=== PATIENT | male | born 1955 | race Caucasian/White ===

== ENCOUNTER 2023-02-18 12:24 | Observation (INO) | payer OTHER ==
--- OUTSIDE RECORDS SUMMARY | 2023-02-18 12:31 | XMS REPORT | Continuity of Care Document ---
:1955 Author Organization [facility] t Address [address] [place] [address] Care Team Providers Name Role Phone Ally GAMA, Marylu Fox Primary Care Physician [phone] Nilo Yadav Attending Clinician Nilo Yadav Admitting Clinician Payers Payer Name Policy Type Policy Number Effective Date Expiration Date [facility] [employer] [id number] 2021 (MEDICARE 00:00:00 REPLACEMENT HMO) Problems Condition Condition Condition Status Onset Resolution Last Treating Co mments Source Name Details Category Date Date Treatment Clinician Date Syncope Syncope Disease Active Methodi 07-29 st 00:00: Hospita 00 l Right Right Disease Active Methodi inguinal inguinal 09-05 st hernia hernia 00:00: Hospita 00 l N20.0 N20.0 Diagnosis Active 2015-07-24 Mem oria Active 07-23 09:25:00 l 07/24/2015 00:00: [place] ADLER [place] UNK UNK Diagnosis Active 2015-07-18 Mem oria Active 07-09 10:01:00 l 07/10/2015 00:00: Leonard ADLER 00 [place] M25.511 - M25.511 - Diagnosis Active 2014-042015-03-03 Memoria PAIN IN PAIN IN 0- 16:11:00 l RIGHT RIGHT 00:01: [place] SHOULDER SHOULDER 00 Active 01/28/2015 [facility] Gastroesop Gastroeso Problem Active 2015-07-27 Memoria hageal phageal 02:57:48 l reflux reflux Preet disease disease (disorder) (disorder) Active Problem 07/27/2015 [facility] Asthma Asthma Problem Active 2015-07-27 Johnson laura (disorder) (disorder) 02:57:48 l Active Preet Problem 07/27/2015 [facility] Degenerati Degenerat Problem Active 2015-07-27 Memoria on of ion of 02:57:48 l interverte interverte He [facility] bral disc bral disc (disorder) (disorder) Active Problem 07/27/2015 [facility] Depressive Depressiv Problem Active 2015-07-27 Memoria disorder e disorder 02:57:48 l (disorder) (disorder) He rmann Active Problem 07/27/2015 [facility] Kidney Kidney Problem Active 2015-07-27 Johnson laura stone stone 02:57:48 l (disorder) (disorder) He rmann Active Problem 07/27/2015 [facility] Dyspnea Dyspnea Problem Active 2015-07-27 M emoria (finding) (finding) 02:57:48 l Active [place] Problem 07/27/2015 [facility] Shoulder Shoulder Problem Active 2015-07-27 Memoria pain pain 02:57:48 l (finding) (finding) Herm yunier Active Problem 07/27/2015 right [facility] XRAY XRAY Diagnosis Active 2013-11-22 Mem oria Active 08:50:00 l [facility] [place] 592.0 592.0 Diagnosis Active 2013-11-08 Mem oria Active 11:29:00 l [facility] [place] CALCULUS CALCULUS Diagnosis Active 2015-07-18 Memoria OF URETER OF URETER 10:01:00 l [facility] OTHER OTHER Diagnosis Active 2015-07-10 Mem oria MICROSCOPI MICROSCOPI 11:59:00 l C C [place] HEMATURIA HEMATURIA Active [facility] CALCULUS CALCULUS Diagnosis Active 2015-07-24 Memoria OF KIDNEY OF KIDNEY 09:25:00 l Active [facility] Disorder Disorder Problem Resolve 2015-07-27 Memoria of nervous of nervous d 02:57:48 l system due system due He [place] to [place] Nile virus Nile virus (disorder) (disorder) Resolved Problem 07/27/2015 [facility] Sleep Sleep Problem Resolve 2015-07-27 Johnson laura apnea apnea d 02:57:48 l (finding) (finding) Herm yunier Resolved Problem 07/27/2015 [facility] Allergies, Adverse Reactions, Alerts This patient has no known allergies or adverse reactions. Family History Family Member Diagnosis Comments Start Date Stop Date Source Natural mother Heart disease Methodi [facility] Natural mother Stroke [facility] Natural mother Dementia [facility] Natural mother Depression [facility] mother Diabetes [facility] Natural sister Depression [facility] Natural sister Hyperlipidemia Method t [facility] Natural brother Drug abuse [facility] Natural father Circulation Problems Confucianism with [facility] Natural father Diabetes [facility] Natural father Heart disease [facility] Natural father Stroke [facility] Social History Social Habit Start Date Stop Date Quantity Comments Source Sexual orientation Method [facility] Hospital History of tobacco Cigarette Smoker [facility] use Hospital History of Social 2018-11-22 2018-11-[address] function 00:00:00 00:00:00 Hospital Cigarettes smoked 2018-07-29 2018-07-[address] current (pack [facility] - Reported Cigarette 2018-07-29 2018-07-29 Confucianism pack-years 00:00:00 00:00:00 Hospital Alcohol intake 2018-07-29 2018-07-29 Current drinker Metho dist 00:00:00 00:00:00 of [facility] Hospital (finding) Tobacco use and 2018-07-29 2018-07-29 Smokeless tobacco Me thodist exposure 00:00:00 00:00:00 non-user Hospital Alcohol Comment 2017-09-14 2017-09-14 occasional Confucianism 00:00:00 00:00:00 drinker Hospital Tobacco Comment 2017-09-05 2017-09-05 doesnt know how Meth odist 00:00:00 00:00:00 long he Hospital smoked,but quit in his thirtys Social History 2015-07-15 2015-07-15 [facility] 21:10:34 21:10:34 Sex [birth year] Confucianism 00:00:00 00:00:00 Hospital Smoking Status Start Date Stop Date Source Ex-smoker 2018-07-29 00:00:00 2018-07-29 00:00:00 [facility] Medications Ordered Filled Start Stop Current Ordering Indication Dosage Frequency Signature Comments Components Source Medication Medication Date Date Medication? Clinician (SIG) Name Name topiramate Yes 100mg QD Take 100 Me thodi (TOPAMAX) 4-[address] 100 MG 13:22: mouth Hospita tablet 37 nightly. l albuterol 2019-0 Yes 2{puff} Q6H Inhale 2 M ethodi (PROAIR 4-[address] HFA,PROVENT 13:22: every 6 Hos eleuterio [place] 37 (six) l HFA,VENTOLI hours as N HFA) 90 needed for mcg/actuati wheezing. on inhaler ipratropium 2019-0 Yes 3mL Q.25D Take 3 mL Methodi -albuterol 4-[address] (DUO-NEB) 13:22: nebulizati Ho spita 0.5-2.5 37 on 4 l mg/mL (four) nebulizer times a day as needed. gluc 2019-0 Yes 1500mg Q.5D Take 1,500 Metho di huizar/chondro 4-[address] huizar A/vit 13:22: mouth 2 Hospit a C/Mn 37 (two) l (GLUCOSAMIN times a E 1500 day. COMPLEX ORAL) diazePAM 2019-0 Yes 2mg QD Take 2 mg Meth larissa (VALIUM) 2 4-[address] MG tablet 13:22: nightly as Ho spita 37 needed for l anxiety. rOPINIRole 2019-0 Yes 8mg QD Take 8 mg Me thodi (REQUIP) 4 4-[address] MG tablet 13:22: nightly. Hosp mihaela 37 l topiramate 2019-0 Yes 100mg QD Take 100 Me thodi (TOPAMAX) 4-[address] 100 MG 13:22: mouth Hospita tablet 37 nightly. l albuterol 2019-0 Yes 2{puff} Q6H Inhale 2 M ethodi (PROAIR 4-[address] HFA,PROVENT 13:22: every 6 Hos eleuterio [place] 37 (six) l HFA,VENTOLI hours as N HFA) 90 needed for mcg/actuati wheezing. on inhaler ipratropium 2019-0 Yes 3mL Q.25D Take 3 mL Methodi -albuterol 4-[address] (DUO-NEB) 13:22: nebulizati Ho spita 0.5-2.5 37 on 4 l mg/mL (four) nebulizer times a day as needed. gluc 2019-0 Yes 1500mg Q.5D Take 1,500 Metho di huizar/chondro 4-[address] huizar A/vit 13:22: mouth 2 Hospit a C/Mn 37 (two) l (GLUCOSAMIN times a E 1500 day. COMPLEX ORAL) diazePAM 2018- Yes 2mg QD Take 2 mg Meth larissa (VALIUM) 2 4-[address] MG tablet 13:22: nightly as Ho spita 37 needed for l anxiety. rOPINIRole Yes 8mg QD Take 8 mg Me thodi (REQUIP) 4 4-[address] MG tablet 13:22: nightly. Hosp mihaela 37 l topiramate Yes 100mg QD Take 100 Me thodi (TOPAMAX) 4-[address] 100 MG 13:22: mouth Hospita tablet 37 nightly. l albuterol Yes 2{puff} Q6H Inhale 2 M ethodi (PROAIR 4-[address] HFA,PROVENT 13:22: every 6 Hos eleuterio [place] 37 (six) l HFA,VENTOLI hours as N HFA) 90 needed for mcg/actuati wheezing. on inhaler ipratropium Yes 3mL Q.25D Take 3 mL Methodi -albuterol 4-[address] (DUO-NEB) 13:22: nebulizati Ho spita 0.5-2.5 37 on 4 l mg/mL (four) nebulizer times a day as needed. gluc 2018-0 Yes 1500mg Q.5D Take 1,500 Metho di huizar/chondro 4-[address] huizar A/vit 13:22: mouth 2 Hospit a C/Mn 37 (two) l (GLUCOSAMIN times a E 1500 day. COMPLEX ORAL) diazePAM 2018- Yes 2mg QD Take 2 mg Meth larissa (VALIUM) 2 4-[address] MG tablet 13:22: nightly as Ho spita 37 needed for l anxiety. rOPINIRole 20190 Yes 8mg QD Take 8 mg Me thodi (REQUIP) 4 4-[address] MG tablet 13:22: nightly. Hosp mihaela 37 l omeprazole 2017-0 Yes TK ONE C Met hodi (PriLOSEC) 5-[address] 20 MG 00:00: Hospita capsule 00 l omeprazole 2017-0 Yes TK ONE C Met hodi (PriLOSEC) 5-[address] 20 MG 00:00: Hospita capsule 00 l omeprazole 2017-0 Yes TK ONE C Met hodi (PriLOSEC) 5-[address] 20 MG 00:00: Hospita capsule 00 l DULoxetine Yes TK 1 C PO Me thodi (CYMBALTA) 4-[address] 60 MG 00:00: Hospita capsule 00 l fenofibrate 0 Yes TK 1 T PO M ethodi (LOFIBRA) 4-[address] 160 MG 00:00: Hospita tablet 00 l BREO 0 Yes INL 1 PUFF Methodi ELLIPTA 4-[address] 200-25 00:00: Hospita mcg/dose 00 l blister with device powder for inhalation levothyroxi Yes TK 1 T PO M ethodi ne 4-[address] (SYNTHROID, 00:00: MORNING Hos eleuterio LEVOXYL) 88 00 OES l mcg tablet DULoxetine Yes TK 1 C PO Me thodi (CYMBALTA) 4-[address] 60 MG 00:00: Hospita capsule 00 l fenofibrate 0 Yes TK 1 T PO M ethodi (LOFIBRA) 4-[address] 160 MG 00:00: Hospita tablet 00 l BREO 0 Yes INL 1 PUFF Methodi ELLIPTA 4-[address] 200-25 00:00: Hospita mcg/dose 00 l blister with device powder for inhalation levothyroxi Yes TK 1 T PO M ethodi ne 4-[address] (SYNTHROID, 00:00: MORNING Hos eleuterio LEVOXYL) 88 00 OES l mcg tablet DULoxetine Yes TK 1 C PO Me thodi (CYMBALTA) 4-[address] 60 MG 00:00: Hospita capsule 00 l fenofibrate 0 Yes TK 1 T PO M ethodi (LOFIBRA) 4-[address] 160 MG 00:00: Hospita tablet 00 l BREO 2017-0 Yes INL 1 PUFF Methodi ELLIPTA 4-[address] 200-25 00:00: Hospita mcg/dose 00 l blister with device powder for inhalation levothyroxi Yes TK 1 T PO M ethodi ne 4-[address] (SYNTHROID, 00:00: MORNING Hos eleuterio LEVOXYL) 88 00 OES l mcg tablet allopurinol 2018-0 Yes 100mg QD Take 100 M ethodi (ZYLOPRIM) 4-[address] 100 MG 00:00: mouth Hospita tablet 00 daily. l allopurinol 2018-0 Yes 100mg QD Take 100 M ethodi (ZYLOPRIM) 4-[address] 100 MG 00:00: mouth Hospita tablet 00 daily. l allopurinol 2018-0 Yes 100mg QD Take 100 M ethodi (ZYLOPRIM) 4-[address] 100 MG 00:00: mouth Hospita tablet 00 daily. l oxybutynin 2018-0 Yes 10mg QD Take 10 mg M ethodi XL 4-[address] (DITROPAN-X 00:00: daily. Hosp mihaela L) 10 MG 24 00 l hr tablet tamsulosin 2018-0 Yes .4mg QD 0.4 mg Metho di (FLOMAX) 4-[address] 0.4 mg 00:00: Hospita capsule,ext 00 l ended release 24hr oxybutynin 2018-0 Yes 10mg QD Take 10 mg M ethodi XL 4-[address] (DITROPAN-X 00:00: daily. Hosp mihaela L) 10 MG 24 00 l hr tablet tamsulosin 2018-0 Yes .4mg QD 0.4 mg Metho di (FLOMAX) 4-[address] 0.4 mg 00:00: Hospita capsule,ext 00 l ended release 24hr oxybutynin 2018-0 Yes 10mg QD Take 10 mg M ethodi XL 4-[address] (DITROPAN-X 00:00: daily. Hosp mihaela L) 10 MG 24 00 l hr tablet tamsulosin 2018-0 Yes .4mg QD 0.4 mg Metho di (FLOMAX) 4-[address] 0.4 mg 00:00: Hospita capsule,ext 00 l ended release 24hr atenolol 2018-0 Yes 25mg QD Take 25 mg Met hodi (TENORMIN) 3-[address] 25 MG 00:00: daily. Hospita tablet 00 l atenolol 2018-0 Yes 25mg QD Take 25 mg Met hodi (TENORMIN) 3-[address] 25 MG 00:00: daily. Hospita tablet 00 l atenolol Yes 25mg QD Take 25 mg Met hodi (TENORMIN) 3-[address] 25 MG 00:00: daily. Hospita tablet 00 l atorvastati Yes 40mg QD Take 40 mg Methodi n (LIPITOR) 3-[address] 40 MG 00:00: daily. Hospita tablet 00 l atorvastati Yes 40mg QD Take 40 mg Methodi n (LIPITOR) 3-[address] 40 MG 00:00: daily. Hospita tablet 00 l atorvastati Yes 40mg QD Take 40 mg Methodi n (LIPITOR) 3-[address] 40 MG 00:00: daily. Hospita tablet 00 l Ondansetron No Notes: Johnson laura 4-15 (Same as: l 17:34: Zofran) [place] 00 MEDICATION WASTE Product Size: 4 mg Product Wasted: ___ mg Ondansetron No Notes: Johnson laura 4-15 (Same as: l 17:34: Zofran) [place] 00 MEDICATION WASTE Product Size: 4 mg Product Wasted: ___ mg Oxycodone No Notes: Memori a Hydrochlori 4-15 (Same as: l de 1 MG/ML 17:34: Roxicodone H ermann Oral 00 ) Solution Oxycodone No Notes: Memori a Hydrochlori 4-15 (Same as: l de 1 MG/ML 17:34: Roxicodone H ermann Oral 00 ) Solution Oxycodone No Notes: Memori a 4-15 (Same as: l 17:34: Roxicodone Preet 00 ) Naloxone No Notes: Memoria 4-15 Same as l 17:34: Narcan [place] 00 Albuterol No Notes: SEE Me moria 0.83 MG/ML 4-15 RT l Inhalant 17:34: DOCUMENTAT Her gallegos Solution 00 ION (Same as: Proventil) Morphine No Notes: Memoria 4-15 (Same l 17:34: as:MORPhin Preet 00 e Sulfate) Hydromorpho No 0.5 mg, Mem oria ne 4-15 0.5 mL, l 17:34: Route: [place] 00 IVP, Drug form: INJ, Q5Min, Dosing Weight 107.301, kg, PRN Pain Score 7-10, Start date: 07/18/15 12:34:00 CDT, Duration: 4 doses or times, Stop date: Limited # of times Ketorolac No 30 mg, Memori a 4-15 Route: l 17:34: IVP, ONCE, Dosing Weight 107.301, kg, Start date: 07/18/15 12:34:00 CDT, Duration: 1 doses or times, Stop date: 07/18/15 12:34:00 CDT Fentanyl No Notes: Memoria 4-15 (Same as: l 17:34: Sublimaze) Preservati ve free. Meperidine No Notes: Memor ia 4-15 (Same As: l 17:34: Demerol) Flumazenil No Notes: Memor ia 4-15 (Same as: l 17:34: Romazicon) Oxycodone No Notes: Memori a 4-15 (Same as: l 17:34: Roxicodone ) Naloxone No Notes: Memoria 4-15 Same as l 17:34: Narcan Albuterol No Notes: SEE Me moria 0.83 MG/ML 4-15 RT l Inhalant 17:34: DOCUMENTAT Her gallegos Solution 00 ION (Same as: Proventil) Morphine No Notes: Memoria 4-15 (Same l 17:34: as:MORPhin e Sulfate) Hydromorpho No 0.5 mg, Mem oria ne 4-15 0.5 mL, l 17:34: Route: IVP, Drug form: INJ, Q5Min, Dosing Weight 107.301, kg, PRN Pain Score 7-10, Start date: 07/18/15 12:34:00 CDT, Duration: 4 doses or times, Stop date: Limited # of times Ketorolac No 30 mg, Memori a 4-15 Route: l 17:34: IVP, ONCE, Dosing Weight 107.301, kg, Start date: 07/18/15 12:34:00 CDT, Duration: 1 doses or times, Stop date: 07/18/15 12:34:00 CDT Fentanyl No Notes: Memoria 4-15 (Same as: l 17:34: Sublimaze) Preservati ve free. Meperidine No Notes: Memor ia 4-15 (Same As: l 17:34: Demerol) Flumazenil No Notes: Memor ia 4-15 (Same as: l 17:34: Romazicon) Ondansetron No Notes: Johnson laura 4-15 (Same as: l 17:34: Zofran) MEDICATION WASTE Product Size: 4 mg Product Wasted: ___ mg Oxycodone No Notes: Memori a Hydrochlori 4-15 (Same as: l de 1 MG/ML 17:34: Roxicodone H erm Oral ) Solution Oxycodone No Notes: Memori a 4-15 (Same as: l 17:34: Roxicodone [place] ) Naloxone No Notes: Memoria 4-15 Same as l 17:34: Narcan Albuterol No Notes: SEE Me moria 0.83 MG/ML 4-15 RT l Inhalant 17:34: DOCUMENTAT Her gallegos Solution 00 ION (Same as: Proventil) Morphine No Notes: Memoria 4-15 (Same l 17:34: as:MORPhin e Sulfate) Hydromorpho No 0.5 mg, Mem oria ne 4-15 0.5 mL, l 17:34: Route: IVP, Drug form: INJ, Q5Min, Dosing Weight 107.301, kg, PRN Pain Score 7-10, Start date: 07/18/15 12:34:00 CDT, Duration: 4 doses or times, Stop date: Limited # of times Ketorolac No 30 mg, Memori a 4-15 Route: l 17:34: IVP, ONCE, Dosing Weight 107.301, kg, Start date: 07/18/15 12:34:00 CDT, Duration: 1 doses or times, Stop date: 07/18/15 12:34:00 CDT Fentanyl No Notes: Memoria 4-15 (Same as: l 17:34: Sublimaze) Preservati ve free. Meperidine No Notes: Memor ia 4-15 (Same As: l 17:34: Demerol) Flumazenil No Notes: Memor ia 4-15 (Same as: l 17:34: Romazicon) acetaminoph No Route: IV, Memoria en (ANES) 4-15 Drug form: l 17:00: INJ, ONCE, Stop date: 07/18/15 12:00:00 CDT ePHEDrine No Route: IV, Me moria (ANES) 4-15 Drug form: l 17:00: INJ, ONCE, Stop date: 07/18/15 12:00:00 CDT furosemide No Route: IV, M emoria (ANES) 4-15 Drug form: l 17:00: INJ, ONCE, Stop date: 07/18/15 12:00:00 CDT acetaminoph No Route: IV, Memoria en (ANES) 4-15 Drug form: l 17:00: INJ, ONCE, Stop date: 07/18/15 12:00:00 CDT ePHEDrine No Route: IV, Me moria (ANES) 4-15 Drug form: l 17:00: INJ, ONCE, Stop date: 07/18/15 12:00:00 CDT furosemide No Route: IV, M emoria (ANES) 4-15 Drug form: l 17:00: INJ, ONCE, Stop date: 07/18/15 12:00:00 CDT acetaminoph No Route: IV, Memoria en (ANES) 4-15 Drug form: l 17:00: INJ, ONCE, Stop date: 07/18/15 12:00:00 CDT ePHEDrine 2015-0 No Route: IV, Me aldanaa (ANES) 15 Drug form: l 17:00: INJ, ONCE, Stop date: 07/18/15 12:00:00 CDT furosemide 2016-0 No Route: IV, Leroy simona (ANES) 4-15 Drug form: l 17:00: INJ, ONCE, Stop date: 07/18/15 12:00:00 CDT Sodium 2016-0 No 1,000 mL, Memori a Chloride -15 Rate: 25 l 0.154 16:59: ml/hr, Preet MEQ/ML 00 Infuse Injectable over: 40 Solution hr, Route: IV, Dosing Weight 107.301 kg, Total Volume: 1,000, Start date: 07/18/15 11:59:00 CDT, Duration: 30 day, Stop date: 08/17/15 11:58:00 CDT Calcium 2016-0 No 1,000 mL, Memor ia Chloride -15 Rate: 25 l 0.0014 16:59: ml/hr, Preet MEQ/ML / 00 Infuse Potassium over: 40 Chloride hr, Route: 0.004 IV, Dosing MEQ/ML / Weight Sodium 107.301 Chloride kg, Total 0.103 Volume: MEQ/ML / 1,000, Sodium Start Lactate date: 0.028 07/18/15 MEQ/ML 11:59:00 Injectable CDT, Solution Duration: 30 day, Stop date: 08/17/15 11:58:00 CDT Sodium 2016-0 No 1,000 mL, Memori a Chloride -15 Rate: 25 l 0.154 16:59: ml/hr, [place] MEQ/ML 00 Infuse Injectable over: 40 Solution hr, Route: IV, Dosing Weight 107.301 kg, Total Volume: 1,000, Start date: 07/18/15 11:59:00 CDT, Duration: 30 day, Stop date: 08/17/15 11:58:00 CDT Calcium 2016-0 No 1,000 mL, Memor ia Chloride 4-15 Rate: 25 l 0.0014 16:59: ml/hr, Preet MEQ/ML / 00 Infuse Potassium over: 40 Chloride hr, Route: 0.004 IV, Dosing MEQ/ML / Weight Sodium 107.301 Chloride kg, Total 0.103 Volume: MEQ/ML / 1,000, Sodium Start Lactate date: 0.028 07/18/15 MEQ/ML 11:59:00 Injectable CDT, Solution Duration: 30 day, Stop date: 08/17/15 11:58:00 CDT Sodium 2015-0 No 1,000 mL, Memori a Chloride 07-17 Rate: 25 l 0.154 16:59: ml/hr, Preet MEQ/ML 00 Infuse Injectable over: 40 Solution hr, Route: IV, Dosing Weight 107.301 kg, Total Volume: 1,000, Start date: 07/18/15 11:59:00 CDT, Duration: 30 day, Stop date: 08/17/15 11:58:00 CDT Calcium 2015-0 No 1,000 mL, Memor ia Chloride 07-17 Rate: 25 l 0.0014 16:59: ml/hr, Preet MEQ/ML / 00 Infuse Potassium over: 40 Chloride hr, Route: 0.004 IV, Dosing MEQ/ML / Weight Sodium 107.301 Chloride kg, Total 0.103 Volume: MEQ/ML / 1,000, Sodium Start Lactate date: 0.028 07/18/15 MEQ/ML 11:59:00 Injectable CDT, Solution Duration: 30 day, Stop date: 08/17/15 11:58:00 CDT ondansetron No Route: IV, Memoria (ANES) 07-17 Drug form: l 16:55: INJ, ONCE, Stop date: 07/18/15 11:55:00 CDT ondansetron No Route: IV, Memoria (ANES) 07-17 Drug form: l 16:55: INJ, ONCE, Stop date: 07/18/15 11:55:00 CDT ondansetron No Route: IV, Memoria (ANES) 4-15 Drug form: l 16:55: INJ, ONCE, Stop date: 07/18/15 11:55:00 CDT midazolam No Route: IV, Me moria (ANES) 15 Drug form: l 16:50: SOLN, 00 ONCE, Stop date: 07/18/15 11:50:00 CDT phenylephri No Route: IV, Memoria ne (ANES) 4-15 Drug form: l 16:50: INJ, ONCE, [place] 00 Stop date: 07/18/15 11:50:00 CDT lidocaine 2016-0 No Route: IV, Me moria (ANES) 4-15 Drug form: l 16:50: INJ, ONCE, Preet 00 Stop date: 07/18/15 11:50:00 CDT propofol 2016-0 No Route: IV, Mem oria (ANES) 4-15 Drug form: l 16:50: INJ, ONCE, [place] 00 Stop date: 07/18/15 11:50:00 CDT fentaNYL 2016-0 No Route: IV, Mem oria (ANES) 4-15 Drug form: l 16:50: INJ, ONCE, Stop date: 07/18/15 11:50:00 CDT midazolam No Route: IV, Me moria (ANES) 4-15 Drug form: l 16:50: SOLN, Preet ONCE, Stop date: 07/18/15 11:50:00 CDT phenylephri No Route: IV, Memoria ne (ANES) 4-15 Drug form: l 16:50: INJ, ONCE, Stop date: 07/18/15 11:50:00 CDT lidocaine 0 No Route: IV, Me moria (ANES) 4-15 Drug form: l 16:50: INJ, ONCE, Stop date: 07/18/15 11:50:00 CDT propofol 2016-0 No Route: IV, Mem oria (ANES) 4-15 Drug form: l 16:50: INJ, ONCE, Preet 00 Stop date: 07/18/15 11:50:00 CDT fentaNYL 2016-0 No Route: IV, Mem oria (ANES) 4-15 Drug form: l 16:50: INJ, ONCE, Preet 00 Stop date: 07/18/15 11:50:00 CDT midazolam 0 No Route: IV, Me moria (ANES) 4-15 Drug form: l 16:50: SOLN, Preet ONCE, Stop date: 07/18/15 11:50:00 CDT phenylephri 2015-0 No Route: IV, Memoria ne (ANES) 4-15 Drug form: l 16:50: INJ, ONCE, Stop date: 07/18/15 11:50:00 CDT lidocaine 2015-0 No Route: IV, Me moria (ANES) 4-15 Drug form: l 16:50: INJ, ONCE, Stop date: 07/18/15 11:50:00 CDT propofol 2016-0 No Route: IV, Mem oria (ANES) 4-15 Drug form: l 16:50: INJ, ONCE, Stop date: 07/18/15 11:50:00 CDT fentaNYL 2015-0 No Route: IV, Mem oria (ANES) 4-15 Drug form: l 16:50: INJ, ONCE, Stop date: 07/18/15 11:50:00 CDT Hydromorpho 2015- No 0.3 mg, Mem oria ne 4-15 0.3 mL, l 16:20: Route: IVP, Drug form: INJ, Q3H, Dosing Weight 107.301, kg, PRN Pain Score 4-6, Start date: 07/18/15 11:20:00 CDT, Duration: 30 day, Stop date: 08/17/15 11:19:00 CDT Morphine 2015-0 No Notes: Memoria 4-15 (Same l 16:20: as:MORPhin Preet 00 e Sulfate) Hydromorpho 2015-0 No 0.3 mg, Mem oria ne 4-15 0.3 mL, l 16:20: Route: IVP, Drug form: INJ, Q3H, Dosing Weight 107.301, kg, PRN Pain Score 4-6, Start date: 07/18/15 11:20:00 CDT, Duration: 30 day, Stop date: 08/17/15 11:19:00 CDT Morphine 2015-0 No Notes: Memoria 4-15 (Same l 16:20: as:MORPhin [place] 00 e Sulfate) Hydromorpho 2015-0 No 0.3 mg, Mem oria ne 4-15 0.3 mL, l 16:20: Route: [place] 00 IVP, Drug form: INJ, Q3H, Dosing Weight 107.301, kg, PRN Pain Score 4-6, Start date: 07/18/15 11:20:00 CDT, Duration: 30 day, Stop date: 08/17/15 11:19:00 CDT Morphine No Notes: Memoria 4-15 (Same l 16:20: as:MORPhin Preet 00 e Sulfate) Lactated No Route: IV, Mem oria Ringers 4-15 Total l Injection 16:04: Volume: Geetha nn IV (ANES) 00 1,000, (ANES) Start date: 07/18/15 11:04:00 CDT, Stop date: 07/18/15 12:04:00 CDT Lactated No Route: IV, Mem oria Ringers 4-15 Total l Injection 16:04: Volume: Geetha nn IV (ANES) 00 1,000, (ANES) Start date: 07/18/15 11:04:00 CDT, Stop date: 07/18/15 12:04:00 CDT Lactated No Route: IV, Mem oria Ringers 4-15 Total l Injection 16:04: Volume: Geetha nn IV (ANES) 00 1,000, (ANES) Start date: 07/18/15 11:04:00 CDT, Stop date: 07/18/15 12:04:00 CDT Symbicort 2016-0 Yes 2 puff, Memor ia 160/4.5 4-12 INHALER, l inhalation 21:22: BID, # 1 Her gallegos aerosol 00 ea, 3 with Refill(s) adapter Symbicort 2016-0 Yes 2 puff, Memor ia 160/4.5 4-12 INHALER, l inhalation 21:22: BID, # 1 Her gallegos aerosol 00 ea, 3 with Refill(s) adapter Symbicort 2016-0 Yes 2 puff, Memor ia 160/4.5 4-12 INHALER, l inhalation 21:22: BID, # 1 Her gallegos aerosol 00 ea, 3 with Refill(s) adapter acetaminoph 2015-0 No Route: IV, Memoria en (ANES) 407 Drug form: l (ANES) 20:32: INJ, Start Geetha nn 00 date: 07/10/15 15:32:00, Stop date: 07/10/15 16:32:00 Oxycodone 2015-0 No 10 mg, Memori a 07-09 Route: PO, l 20:32: Drug form: [place] 00 TAB, Q4H, Dosing Weight 106.818, kg, PRN Pain Score 7-10, Start date: 07/10/15 15:32:00, Duration: 30 day, Stop date: 08/09/15 15:31:00 Fentanyl 2015-0 No 25 Memoria 4- microgram, l 20:32: Route: Preet 00 IVP, Q5Min, Dosing Weight 106.818, kg, PRN Pain Score 4-6, Start date: 07/10/15 15:32:00, Duration: 4 doses or times, Stop date: Limited # of times Sodium 2015-0 No 1,000 mL, Memori a Chloride 07-09 Rate: 125 l 0.154 20:32: ml/hr, Preet MEQ/ML 00 Infuse Injectable over: 8 Solution hr, Route: IV, Dosing Weight 106.818 kg, Total Volume: 1,000, Start date: 07/10/15 15:32:00, Duration: 30 day, Stop date: 08/09/15 15:31:00 Naloxone 2015-0 No 0.04 mg, Memor ia 07-09 Route: l 20:32: IVP, [place] 00 Q2MIN, Dosing Weight 106.818, kg, PRN Narcotic Reversal, Start date: 07/10/15 15:32:00, Duration: 8 doses or times, Stop date: Limited # of times Flumazenil 2015-0 No 0.2 mg, Johnson laura 07-09 Route: l 20:32: IVP, PRN, [place] 00 Dosing Weight 106.818, kg, PRN Benzodiaze pine Reversal, Initial dose, Start date: 07/10/15 15:32:00, Duration: 30 day, Stop date: 08/09/15 15:31:00 Diphenhydra 2015-0 No 12.5 mg, Me moria mine 07-09 Route: l 20:32: IVP, Drug Preet 00 form: INJ, Q6H, Dosing Weight 106.818, kg, PRN Itching, Start date: 07/10/15 15:32:00, Duration: 30 day, Stop date: 08/09/15 15:31:00 Ondansetron 2016-0 No 4 mg, Memor ia 07-09 Route: l 20:32: IVP, ONCE, [place] 00 Dosing Weight 106.818, kg, PRN Nausea & Vomiting, Start date: 07/10/15 15:32:00 Albuterol 2016-0 No 2.49 mg, Johnson laura 0.83 MG/ML 07-09 Route: l Inhalant 20:32: NEB, [place] Solution 00 Q20Min, Dosing Weight 106.818, kg, PRN Wheezing, Priority: STAT, Start date: 07/10/15 15:32:00, Duration: 30 day, Stop date: 08/09/15 15:31:00 Promethazin 2016-0 No 6.25 mg, Me moria e 07-09 Route: l 20:32: IVPB, Preet 00 ONCE, Dosing Weight 106.818, kg, PRN Nausea & Vomiting, Start date: 07/10/15 15:32:00 Hydromorpho 2016-0 No 0.5 mg, Mem oria ne 07-09 Route: l 20:32: IVP, [place] 00 Q5Min, Dosing Weight 106.818, kg, PRN Pain Score 7-10, Start date: 07/10/15 15:32:00, Duration: 4 doses or times, Stop date: Limited # of times Meperidine 2016-0 No 12.5 mg, Mem oria 07-09 Route: l 20:32: IVP, Preet 00 Q30Min, Dosing Weight 106.818, kg, PRN Other -See Comment, For shivering, Start date: 07/10/15 15:32:00, Duration: 2 doses or times, Stop date: Limited # of times Calcium 2016-0 No 1,000 mL, Memor ia Chloride 07-09 Rate: 125 l 0.0014 20:32: ml/hr, Preet MEQ/ML / 00 Infuse Potassium over: 8 Chloride hr, Route: 0.004 IV, Dosing MEQ/ML / Weight Sodium 106.818 Chloride kg, Total 0.103 Volume: MEQ/ML / 1,000, Sodium Start Lactate date: 0.028 07/10/15 MEQ/ML 15:32:00, Injectable Duration: Solution 30 day, Stop date: 08/09/15 15:31:00 acetaminoph 2015- No Route: IV, Memoria en (ANES) 07-09 Drug form: l (ANES) 20:32: INJ, Start Geetha nn 00 date: 07/10/15 15:32:00, Stop date: 07/10/15 16:32:00 Oxycodone No 10 mg, Memori a 07-09 Route: PO, l 20:32: Drug form: Preet 00 TAB, Q4H, Dosing Weight 106.818, kg, PRN Pain Score 7-10, Start date: 07/10/15 15:32:00, Duration: 30 day, Stop date: 08/09/15 15:31:00 Fentanyl 2015- No 25 Memoria - microgram, l 20:32: Route: [place] 00 IVP, Q5Min, Dosing Weight 106.818, kg, PRN Pain Score 4-6, Start date: 07/10/15 15:32:00, Duration: 4 doses or times, Stop date: Limited # of times Sodium No 1,000 mL, Memori a Chloride 07-09 Rate: 125 l 0.154 20:32: ml/hr, Preet MEQ/ML 00 Infuse Injectable over: 8 Solution hr, Route: IV, Dosing Weight 106.818 kg, Total Volume: 1,000, Start date: 07/10/15 15:32:00, Duration: 30 day, Stop date: 08/09/15 15:31:00 Naloxone No 0.04 mg, Memor ia 07-09 Route: l 20:32: IVP, [place] 00 Q2MIN, Dosing Weight 106.818, kg, PRN Narcotic Reversal, Start date: 07/10/15 15:32:00, Duration: 8 doses or times, Stop date: Limited # of times Flumazenil No 0.2 mg, Johnson laura 07-09 Route: l 20:32: IVP, PRN, [place] 00 Dosing Weight 106.818, kg, PRN Benzodiaze pine Reversal, Initial dose, Start date: 07/10/15 15:32:00, Duration: 30 day, Stop date: 08/09/15 15:31:00 Diphenhydra 2016-0 No 12.5 mg, Me moria mine 07-09 Route: l 20:32: IVP, Drug [place] 00 form: INJ, Q6H, Dosing Weight 106.818, kg, PRN Itching, Start date: 07/10/15 15:32:00, Duration: 30 day, Stop date: 08/09/15 15:31:00 Ondansetron 2016-0 No 4 mg, Memor ia 07-09 Route: l 20:32: IVP, ONCE, [place] 00 Dosing Weight 106.818, kg, PRN Nausea & Vomiting, Start date: 07/10/15 15:32:00 Albuterol 2016-0 No 2.49 mg, Johnson laura 0.83 MG/ML 07-09 Route: l Inhalant 20:32: NEB, [place] Solution 00 Q20Min, Dosing Weight 106.818, kg, PRN Wheezing, Priority: STAT, Start date: 07/10/15 15:32:00, Duration: 30 day, Stop date: 08/09/15 15:31:00 Promethazin 2016-0 No 6.25 mg, Me moria e 07-09 Route: l 20:32: IVPB, Preet 00 ONCE, Dosing Weight 106.818, kg, PRN Nausea & Vomiting, Start date: 07/10/15 15:32:00 Hydromorpho 2016-0 No 0.5 mg, Mem oria ne 07-09 Route: l 20:32: IVP, [place] 00 Q5Min, Dosing Weight 106.818, kg, PRN Pain Score 7-10, Start date: 07/10/15 15:32:00, Duration: 4 doses or times, Stop date: Limited # of times Meperidine 2016-0 No 12.5 mg, Mem oria 07-09 Route: l 20:32: IVP, [place] 00 Q30Min, Dosing Weight 106.818, kg, PRN Other -See Comment, For shivering, Start date: 07/10/15 15:32:00, Duration: 2 doses or times, Stop date: Limited # of times Calcium 2016-0 No 1,000 mL, Memor ia Chloride -07 Rate: 125 l 0.0014 20:32: ml/hr, [place] MEQ/ML / 00 Infuse Potassium over: 8 Chloride hr, Route: 0.004 IV, Dosing MEQ/ML / Weight Sodium 106.818 Chloride kg, Total 0.103 Volume: MEQ/ML / 1,000, Sodium Start Lactate date: 0.028 07/10/15 MEQ/ML 15:32:00, Injectable Duration: Solution 30 day, Stop date: 08/09/15 15:31:00 acetaminoph 2015-0 No Route: IV, Memoria en (ANES) 07-09 Drug form: l (ANES) 20:32: INJ, Start Geetha nn 00 date: 07/10/15 15:32:00, Stop date: 07/10/15 16:32:00 Oxycodone 2015-0 No 10 mg, Memori a - Route: PO, l 20:32: Drug form: [place] 00 TAB, Q4H, Dosing Weight 106.818, kg, PRN Pain Score 7-10, Start date: 07/10/15 15:32:00, Duration: 30 day, Stop date: 08/09/15 15:31:00 Fentanyl 2015-0 No 25 Memoria -07 microgram, l 20:32: Route: [place] 00 IVP, Q5Min, Dosing Weight 106.818, kg, PRN Pain Score 4-6, Start date: 07/10/15 15:32:00, Duration: 4 doses or times, Stop date: Limited # of times Sodium 2016-0 No 1,000 mL, Memori a Chloride - Rate: 125 l 0.154 20:32: ml/hr, [place] MEQ/ML 00 Infuse Injectable over: 8 Solution hr, Route: IV, Dosing Weight 106.818 kg, Total Volume: 1,000, Start date: 07/10/15 15:32:00, Duration: 30 day, Stop date: 08/09/15 15:31:00 Naloxone 2016-0 No 0.04 mg, Memor ia - Route: l 20:32: IVP, [place] 00 Q2MIN, Dosing Weight 106.818, kg, PRN Narcotic Reversal, Start date: 07/10/15 15:32:00, Duration: 8 doses or times, Stop date: Limited # of times Flumazenil 2016-0 No 0.2 mg, Johnson laura 07-09 Route: l 20:32: IVP, PRN, [place] 00 Dosing Weight 106.818, kg, PRN Benzodiaze pine Reversal, Initial dose, Start date: 07/10/15 15:32:00, Duration: 30 day, Stop date: 08/09/15 15:31:00 Diphenhydra 2016-0 No 12.5 mg, Me moria mine 07-09 Route: l 20:32: IVP, Drug [place] 00 form: INJ, Q6H, Dosing Weight 106.818, kg, PRN Itching, Start date: 07/10/15 15:32:00, Duration: 30 day, Stop date: 08/09/15 15:31:00 Ondansetron 2016-0 No 4 mg, Memor ia 07-09 Route: l 20:32: IVP, ONCE, [place] 00 Dosing Weight 106.818, kg, PRN Nausea & Vomiting, Start date: 07/10/15 15:32:00 Albuterol 2016-0 No 2.49 mg, Johnson laura 0.83 MG/ML 07-09 Route: l Inhalant 20:32: NEB, Preet Solution 00 Q20Min, Dosing Weight 106.818, kg, PRN Wheezing, Priority: STAT, Start date: 07/10/15 15:32:00, Duration: 30 day, Stop date: 08/09/15 15:31:00 Promethazin 2016-0 No 6.25 mg, Me moria e 07-09 Route: l 20:32: IVPB, [place] 00 ONCE, Dosing Weight 106.818, kg, PRN Nausea & Vomiting, Start date: 07/10/15 15:32:00 Hydromorpho 2016-0 No 0.5 mg, Mem oria ne 07-09 Route: l 20:32: IVP, [place] 00 Q5Min, Dosing Weight 106.818, kg, PRN Pain Score 7-10, Start date: 07/10/15 15:32:00, Duration: 4 doses or times, Stop date: Limited # of times Meperidine 2016-0 No 12.5 mg, Mem oria 07-09 Route: l 20:32: IVP, [place]reet 00 Q30Min, Dosing Weight 106.818, kg, PRN Other -See Comment, For shivering, Start date: 07/10/15 15:32:00, Duration: 2 doses or times, Stop date: Limited # of times Calcium 2015-0 No 1,000 mL, Memor ia Chloride 07-09 Rate: 125 l 0.0014 20:32: ml/hr, [place] MEQ/ML / 00 Infuse Potassium over: 8 Chloride hr, Route: 0.004 IV, Dosing MEQ/ML / Weight Sodium 106.818 Chloride kg, Total 0.103 Volume: MEQ/ML / 1,000, Sodium Start Lactate date: 0.028 07/10/15 MEQ/ML 15:32:00, Injectable Duration: Solution 30 day, Stop date: 08/09/15 15:31:00 ePHEDrine 2015-0 No Route: IV, Me moria (ANES) 07-09 Drug form: l 20:28: INJ, ONCE, Preet 00 Stop date: 07/10/15 15:28:00 ondansetron 2015-0 No Route: IV, Memoria (ANES) 07-09 Drug form: l 20:28: INJ, ONCE, Preet 00 Stop date: 07/10/15 15:28:00 ePHEDrine 2015-0 No Route: IV, Me moria (ANES) 07-09 Drug form: l 20:28: INJ, ONCE, [place] 00 Stop date: 07/10/15 15:28:00 ondansetron 2015-0 No Route: IV, Memoria (ANES) 07-09 Drug form: l 20:28: INJ, ONCE, Preet Stop date: 07/10/15 15:28:00 ePHEDrine 2015-0 No Route: IV, Me moria (ANES) 4- Drug form: l 20:28: INJ, ONCE, [place] 00 Stop date: 07/10/15 15:28:00 ondansetron 2016-0 No Route: IV, Memoria (ANES) 07-09 Drug form: l 20:28: INJ, ONCE, Preet Stop date: 07/10/15 15:28:00 midazolam 2016-0 No Route: IV, Me moria (ANES) 4-07 Drug form: l 20:27: SOLN, [place] 00 ONCE, Stop date: 07/10/15 15:27:00 propofol 2016-0 No Route: IV, Mem oria (ANES) 4-07 Drug form: l 20:27: INJ, ONCE, Preet 00 Stop date: 07/10/15 15:27:00 lidocaine 2016-0 No Route: IV, Me moria (ANES) 4- Drug form: l 20:27: INJ, ONCE, [place] 00 Stop date: 07/10/15 15:27:00 fentaNYL 2016-0 No Route: IV, Mem oria (ANES) 4-07 Drug form: l 20:27: INJ, ONCE, Preet 00 Stop date: 07/10/15 15:27:00 midazolam 2016-0 No Route: IV, Me moria (ANES) 4-07 Drug form: l 20:27: SOLN, Preet 00 ONCE, Stop date: 07/10/15 15:27:00 propofol 2016-0 No Route: IV, Mem oria (ANES) 4-07 Drug form: l 20:27: INJ, ONCE, Preet 00 Stop date: 07/10/15 15:27:00 lidocaine 2016-0 No Route: IV, Me moria (ANES) 4-07 Drug form: l 20:27: INJ, ONCE, Preet 00 Stop date: 07/10/15 15:27:00 fentaNYL 2016-0 No Route: IV, Mem oria (ANES) 4-07 Drug form: l 20:27: INJ, ONCE, Preet 00 Stop date: 07/10/15 15:27:00 midazolam 2016-0 No Route: IV, Me moria (ANES) 4-07 Drug form: l 20:27: SOLN, [place] 00 ONCE, Stop date: 07/10/15 15:27:00 propofol 2016-0 No Route: IV, Mem oria (ANES) 4-07 Drug form: l 20:27: INJ, ONCE, [place] 00 Stop date: 07/10/15 15:27:00 lidocaine 2016-0 No Route: IV, Me moria (ANES) 4-07 Drug form: l 20:27: INJ, ONCE, [place] 00 Stop date: 07/10/15 15:27:00 fentaNYL 2016-0 No Route: IV, Mem oria (ANES) 07-09 Drug form: l 20:27: INJ, ONCE, Stop date: 07/10/15 15:27:00 famotidine 2015-0 No Route: IV, M emoria (ANES) 07-09 Drug form: l 20:22: INJ, ONCE, Stop date: 07/10/15 15:22:00 metoclopram 2016-0 No Route: IV, Memoria natalie (ANES) 07-09 Drug form: l 20:22: INJ, ONCE, Stop date: 07/10/15 15:22:00 famotidine 2015-0 No Route: IV, M emoria (ANES) 07-09 Drug form: l 20:22: INJ, ONCE, Stop date: 07/10/15 15:22:00 metoclopram 2016-0 No Route: IV, Memoria natalie (ANES) 07-09 Drug form: l 20:22: INJ, ONCE, Stop date: 07/10/15 15:22:00 famotidine 2015-0 No Route: IV, M emoria (ANES) 07-09 Drug form: l 20:22: INJ, ONCE, Stop date: 07/10/15 15:22:00 metoclopram 2016-0 No Route: IV, Memoria natalie (ANES) 07-09 Drug form: l 20:22: INJ, ONCE, Stop date: 07/10/15 15:22:00 Ciprofloxac Yes 500 mg = 1 Memoria in 500 MG 07-09 tab, PO, l Oral Tablet 20:19: Q12H, X 21 [place] [Cipro] 00 day, # 42 tab, 1 Refill(s) Phenazopyri 2015-0 Yes 100 mg = 1 Memoria dine -07 tab, PO, l hydrochlori 20:19: TID, PRN He rmann de 100 MG 00 Dysuria, X Oral Tablet 2 week, # [Pyridium] 42 tab, 1 Refill(s) Ciprofloxac Yes 500 mg = 1 Memoria in 500 MG 4-07 tab, PO, l Oral Tablet 20:19: Q12H, X 21 P[place] [Cipro] 00 day, # 42 tab, 1 Refill(s) Phenazopyri 2015- Yes 100 mg = 1 Memoria dine 4-07 tab, PO, l hydrochlori 20:19: TID, PRN He rmann de 100 MG 00 Dysuria, X Oral Tablet 2 week, # [Pyridium] 42 tab, 1 Refill(s) Ciprofloxac Yes 500 mg = 1 Memoria in 500 MG 4-07 tab, PO, l Oral Tablet 20:19: Q12H, X 21 Preet [Cipro] 00 day, # 42 tab, 1 Refill(s) Phenazopyri Yes 100 mg = 1 Memoria dine 4-07 tab, PO, l hydrochlori 20:19: TID, PRN He rmann de 100 MG 00 Dysuria, X Oral Tablet 2 week, # [Pyridium] 42 tab, 1 Refill(s) Belladonna No Notes: Memor ia Alkaloids - (Same As:B l 16.2 MG / 20:16: & O Supp Herm yunier Opium 30 MG 00 16A) Rectal Suppository Hydromorpho No 0.3 mg, Mem oria ne -07 0.3 mL, l 20:16: Route: Preet 00 IVP, Drug form: INJ, Q3H, Dosing Weight 106.818, kg, PRN Pain Score 4-6, Start date: 07/10/15 15:16:00, Duration: 30 day, Stop date: 08/09/15 15:15:00 Belladonna 2015-0 No Notes: Memor ia Alkaloids 07-09 (Same As:B l 16.2 MG / 20:16: & O Supp Herm yunier Opium 30 MG 16A) Rectal Suppository Hydromorpho No 0.3 mg, Mem oria ne -07 0.3 mL, l 20:16: Route: Preet 00 IVP, Drug form: INJ, Q3H, Dosing Weight 106.818, kg, PRN Pain Score 4-6, Start date: 07/10/15 15:16:00, Duration: 30 day, Stop date: 08/09/15 15:15:00 [place] No Notes: Memor ia Alkaloids - (Same As:B l 16.2 MG / 20:16: & O Supp Herm yunier Opium 30 MG 00 16A) Rectal Suppository Hydromorpho No 0.3 mg, Mem oria ne 07-09 0.3 mL, l 20:16: Route: Preet 00 IVP, Drug form: INJ, Q3H, Dosing Weight 106.818, kg, PRN Pain Score 4-6, Start date: 07/10/15 15:16:00, Duration: 30 day, Stop date: 08/09/15 15:15:00 Sodium No Route: IV, Memor ia Chloride - Drug form: l 0.9% IV 20:05: INJ, Start Herm yunier (ANES) 00 date: (ANES) + 07/10/15 cefTRIAXone 15:05:00, (ANES) Stop date: (ANES) 07/10/15 16:05:00 Sodium No Route: IV, Memor ia Chloride 07-09 Drug form: l 0.9% IV 20:05: INJ, Start Herm yunier (ANES) 00 date: (ANES) + 07/10/15 cefTRIAXone 15:05:00, (ANES) Stop date: (ANES) 07/10/15 16:05:00 Sodium No Route: IV, Memor ia Chloride -07 Drug form: l 0.9% IV 20:05: INJ, Start Herm yunier (ANES) 00 date: (ANES) + 07/10/15 cefTRIAXone 15:05:00, (ANES) Stop date: (ANES) 07/10/15 16:05:00 ciprofloxac No Route: IV, Memoria in (ANES) 4-07 Drug form: l (ANES) 19:35: INJ, Start Geetha nn date: 07/10/15 14:35:00, Stop date: 07/10/15 15:35:00 ciprofloxac No Route: IV, Memoria in (ANES) 407 Drug form: l (ANES) 19:35: INJ, Start Geetha nn date: 07/10/15 14:35:00, Stop date: 07/10/15 15:35:00 ciprofloxac No Route: IV, Memoria in (ANES) 07-09 Drug form: l (ANES) 19:35: INJ, Start Geetha nn 00 date: 07/10/15 14:35:00, Stop date: 07/10/15 15:35:00 Lactated No Route: IV, Mem oria Ringers 4-07 Total l Injection 19:20: Volume: Geetha nn IV (ANES) 00 1,000, (ANES) Start date: 07/10/15 14:20:00, Stop date: 07/10/15 15:20:00 Lactated No Route: IV, Mem oria Ringers 4-07 Total l Injection 19:20: Volume: Geetha nn IV (ANES) 00 1,000, (ANES) Start date: 07/10/15 14:20:00, Stop date: 07/10/15 15:20:00 Lactated No Route: IV, Mem oria Ringers 4-07 Total l Injection 19:20: Volume: Geetha nn IV (ANES) 00 1,000, (ANES) Start date: 07/10/15 14:20:00, Stop date: 07/10/15 15:20:00 Calcium 2015-0 No 1,000 mL, Memor ia Chloride 07-09 Rate: 25 l 0.0014 18:41: ml/hr, Preet MEQ/ML / 00 Infuse Potassium over: 40 Chloride hr, Route: 0.004 IV, Dosing MEQ/ML / Weight Sodium 106.818 Chloride kg, Total 0.103 Volume: MEQ/ML / 1,000, Sodium Start Lactate date: 0.028 07/10/15 MEQ/ML 13:41:00, Injectable Duration: Solution 30 day, Stop date: 08/09/15 13:40:00 Sodium 0 No 1,000 mL, Memori a Chloride 07-09 Rate: 25 l 0.154 18:41: ml/hr, Preet MEQ/ML 00 Infuse Injectable over: 40 Solution hr, Route: IV, Dosing Weight 106.818 kg, Total Volume: 1,000, Start date: 07/10/15 13:41:00, Duration: 30 day, Stop date: 08/09/15 13:40:00 Calcium 2016-0 No 1,000 mL, Memor ia Chloride 4-07 Rate: 25 l 0.0014 18:41: ml/hr, [place] MEQ/ML / 00 Infuse Potassium over: 40 Chloride hr, Route: 0.004 IV, Dosing MEQ/ML / Weight Sodium 106.818 Chloride kg, Total 0.103 Volume: MEQ/ML / 1,000, Sodium Start Lactate date: 0.028 07/10/15 MEQ/ML 13:41:00, Injectable Duration: Solution 30 day, Stop date: 08/09/15 13:40:00 Sodium 2016-0 No 1,000 mL, Memori a Chloride 4-07 Rate: 25 l 0.154 18:41: ml/hr, [place] MEQ/ML 00 Infuse Injectable over: 40 Solution hr, Route: IV, Dosing Weight 106.818 kg, Total Volume: 1,000, Start date: 07/10/15 13:41:00, Duration: 30 day, Stop date: 08/09/15 13:40:00 Calcium 2016-0 No 1,000 mL, Memor ia Chloride 4-07 Rate: 25 l 0.0014 18:41: ml/hr, [place] MEQ/ML / 00 Infuse Potassium over: 40 Chloride hr, Route: 0.004 IV, Dosing MEQ/ML / Weight Sodium 106.818 Chloride kg, Total 0.103 Volume: MEQ/ML / 1,000, Sodium Start Lactate date: 0.028 07/10/15 MEQ/ML 13:41:00, Injectable Duration: Solution 30 day, Stop date: 08/09/15 13:40:00 Sodium 2016-0 No 1,000 mL, Memori a Chloride 4-07 Rate: 25 l 0.154 18:41: ml/hr, [place] MEQ/ML 00 Infuse Injectable over: 40 Solution hr, Route: IV, Dosing Weight 106.818 kg, Total Volume: 1,000, Start date: 07/10/15 13:41:00, Duration: 30 day, Stop date: 08/09/15 13:40:00 ciprofloxac 2016-0 Yes 500 mg = 1 Memoria in 500 mg 4-05 tab, PO, l oral tablet 20:25: Q12H, # 20 [place] 00 tab, 0 Refill(s) ciprofloxac Yes 500 mg = 1 Memoria in 500 mg 4-05 tab, PO, l oral tablet 20:25: Q12H, # 20 Preet 00 tab, 0 Refill(s) ciprofloxac Yes 500 mg = 1 Memoria in 500 mg 4-05 tab, PO, l oral tablet 20:25: Q12H, # 20 Preet 00 tab, 0 Refill(s) Acetaminoph Yes 1 tab, PO, Memoria en 325 MG / 4-05 TID, PRN l Hydrocodone 20:24: Pain, # 60 [place] Bitartrate 00 tab, 0 10 MG Oral Refill(s) Tablet [[place] 10/325] phenazopyri Yes 100 mg = 1 Memoria dine 100 mg 4-05 tab, PO, l oral tablet 20:24: TID, PRN He rmann 00 dysuria, # 6 tab, 0 Refill(s) Trazodone Yes 50 mg = 1 Mem oria Hydrochlori 4-05 tab, PO, l de 50 MG 20:24: Bedtime, # Her gallegos Oral Tablet 00 30 tab, 1 Refill(s) Acetaminoph Yes 1 tab, PO, Memoria en 325 MG / 4-05 TID, PRN l Hydrocodone 20:24: Pain, # 60 Preet Bitartrate 00 tab, 0 10 MG Oral Refill(s) Tablet [[place] 10/325] phenazopyri Yes 100 mg = 1 Memoria dine 100 mg 4-05 tab, PO, l oral tablet 20:24: TID, PRN He rmann 00 dysuria, # 6 tab, 0 Refill(s) Trazodone Yes 50 mg = 1 Mem oria Hydrochlori 4-05 tab, PO, l de 50 MG 20:24: Bedtime, # Her gallegos Oral Tablet 00 30 tab, 1 Refill(s) Acetaminoph 0 Yes 1 tab, PO, Memoria en 325 MG / 4-05 TID, PRN l Hydrocodone 20:24: Pain, # 60 [place] Bitartrate 00 tab, 0 10 MG Oral Refill(s) Tablet [[place] 10/325] phenazopyri 2016-0 Yes 100 mg = 1 Memoria dine 100 mg 4-05 tab, PO, l oral tablet 20:24: TID, PRN He r[place] 00 dysuria, # 6 tab, 0 Refill(s) Trazodone 0 Yes 50 mg = 1 Mem oria Hydrochlori 4-05 tab, PO, l de 50 MG 20:24: Bedtime, # Her gallegos Oral Tablet 00 30 tab, 1 Refill(s) montelukast 2015-0 Yes 10 mg = 1 M emoria 10 MG Oral 4-05 tab, PO, l Tablet 20:23: Bedtime, # Geetha nn [Singulair] 00 30 tab, 0 Refill(s) montelukast 2015-0 Yes 10 mg = 1 M emoria 10 MG Oral 4-05 tab, PO, l Tablet 20:23: Bedtime, # Geetha nn [Singulair] 00 30 tab, 0 Refill(s) montelukast 2015-0 Yes 10 mg = 1 M emoria 10 MG Oral 4-05 tab, PO, l Tablet 20:23: Bedtime, # Geetha nn [Singulair] 00 30 tab, 0 Refill(s) metaxalone 0 Yes 800 mg = 1 M emoria 800 MG Oral 4-05 tab, PO, l Tablet 20:22: Daily, 0 Preet [Skelaxin] 00 Refill(s) allopurinol 0 Yes 100 mg = 1 Memoria 100 mg oral 4-05 tab, PO, l tablet 20:22: Daily, # Preet 00 90 tab, 1 Refill(s) metaxalone 0 Yes 800 mg = 1 M emoria 800 MG Oral 4-05 tab, PO, l Tablet 20:22: Daily, 0 Preet [Skelaxin] 00 Refill(s) allopurinol 2015-0 Yes 100 mg = 1 Memoria 100 mg oral 4-05 tab, PO, l tablet 20:22: Daily, # Preet 00 90 tab, 1 Refill(s) metaxalone 0 Yes 800 mg = 1 M emoria 800 MG Oral 4-05 tab, PO, l Tablet 20:22: Daily, 0 Preet [Skelaxin] 00 Refill(s) allopurinol 2016 Yes 100 mg = 1 Memoria 100 mg oral 4-05 tab, PO, l tablet 20:22: Daily, # [place] 00 90 tab, 1 Refill(s) Fenofibrate Yes 145 mg = 1 Memoria 145 MG Oral 4-05 tab, PO, l Tablet 20:21: Daily, # [place] 00 30 tab, 0 Refill(s) atorvastati 2015-0 Yes 20 mg = 1 M emoria n 20 mg 4-05 tab, PO, l oral tablet 20:21: Bedtime, # [place] 00 30 tab, 0 Refill(s) Fenofibrate 2015-0 Yes 145 mg = 1 Memoria 145 MG Oral 4-05 tab, PO, l Tablet 20:21: Daily, # Preet 00 30 tab, 0 Refill(s) atorvastati 2015-0 Yes 20 mg = 1 M emoria n 20 mg 4-05 tab, PO, l oral tablet 20:21: Bedtime, # [place] 00 30 tab, 0 Refill(s) Fenofibrate Yes 145 mg = 1 Memoria 145 MG Oral 4-05 tab, PO, l Tablet 20:21: Daily, # Preet 00 30 tab, 0 Refill(s) atorvastati 2015-0 Yes 20 mg = 1 M emoria n 20 mg 4-05 tab, PO, l oral tablet 20:21: Bedtime, # Preet 00 30 tab, 0 Refill(s) Oxycodone 0 No 10 mg, Memori a Hydrochlori 11-02 Route: PO, l de 5 MG 17:49: Drug form: Herm yunier Oral Tablet 00 TAB, ONCE, Dosing Weight 106.818, kg, PRN as needed for pain, Start date: 11/02/13 12:49:00 Oxycodone 2013-0 No 10 mg, Memori a Hydrochlori 11-02 Route: PO, l de 5 MG 17:49: Drug form: Herm yunier Oral Tablet 00 TAB, ONCE, Dosing Weight 106.818, kg, PRN as needed for pain, Start date: 11/02/13 12:49:00 Oxycodone 2014-0 No 10 mg, Memori a Hydrochlori 11-02 Route: PO, l de 5 MG 17:49: Drug form: Herm yunier Oral Tablet 00 TAB, ONCE, Dosing Weight 106.818, kg, PRN as needed for pain, Start date: 11/02/13 12:49:00 Ondansetron No 4 mg, Memor ia 11-02 Route: l 16:40: IVP, ONCE, Preet 00 Dosing Weight 106.818, kg, PRN Nausea & Vomiting, Start date: 11/02/13 11:40:00 Acetaminoph Yes Notes: Do M emoria en 325 MG / 11-02 not exceed l Hydrocodone 16:40: 4gm/day of [place] Bitartrate 00 acetaminop 10 MG Oral hen. (Same Tablet as: [place] [[place] 325/10) 325] Fentanyl No 25 Memoria 11-02 microgram, l 16:40: Route: Preet 00 IVP, Q5Min, Dosing Weight 106.818, kg, PRN Pain Score 4-6, Start date: 11/02/13 11:40:00, Duration: 4 doses or times, Stop date: Limited # of times Hydromorpho No 0.5 mg, Mem oria ne 11-02 Route: l 16:40: IVP, [place] 00 Q5Min, Dosing Weight 106.818, kg, PRN Pain Score 7-10, Start date: 11/02/13 11:40:00, Duration: 4 doses or times, Stop date: Limited # of times Flumazenil No 0.2 mg, Johnson laura 11-02 Route: l 16:40: IVP, PRN, Preet 00 Dosing Weight 106.818, kg, PRN Benzodiaze pine Reversal, Initial dose, Start date: 11/02/13 11:40:00, Duration: 30 day, Stop date: 12/02/13 11:39:00 Naloxone No 0.04 mg, Memor ia 11-02 Route: l 16:40: IVP, Preet 00 Q2MIN, Dosing Weight 106.818, kg, PRN Narcotic Reversal, Start date: 11/02/13 11:40:00, Duration: 8 doses or times, Stop date: Limited # of times Hydralazine No 10 mg, Johnson laura 11-02 Route: l 16:40: IVP, [place] 00 Q20Min, Dosing Weight 106.818, kg, PRN Elevated BP, Start date: 11/02/13 11:40:00, Duration: 2 doses or times, Stop date: Limited # of times Oxycodone No 5 mg, Memoria 11-02 Route: PO, l 16:40: Drug form: [place] 00 TAB, Q4H, Dosing Weight 106.818, kg, PRN Pain Score 4-6, Start date: 11/02/13 11:40:00, Duration: 30 day, Stop date: 12/02/13 11:39:00 Metoprolol No 1 mg, Memori a 11-02 Route: l 16:40: IVP, Preet 00 Q5Min, Dosing Weight 106.818, kg, PRN Other -See Comment, Start date: 11/02/13 11:40:00, Duration: 5 doses or times, Stop date: Limited # of times Ondansetron No 4 mg, Memor ia 11-02 Route: l 16:40: IVP, ONCE, Preet 00 Dosing Weight 106.818, kg, PRN Nausea & Vomiting, Start date: 11/02/13 11:40:00 Acetaminoph Yes Notes: Do M emoria en 325 MG / 11-02 not exceed l Hydrocodone 16:40: 4gm/day of [place] Bitartrate 00 acetaminop 10 MG Oral hen. (Same Tablet as: [place] [[place] 325/10) ] Fentanyl 2013-0 No 25 Memoria 11-02 microgram, l 16:40: Route: Preet 00 IVP, Q5Min, Dosing Weight 106.818, kg, PRN Pain Score 4-6, Start date: 11/02/13 11:40:00, Duration: 4 doses or times, Stop date: Limited # of times Hydromorpho No 0.5 mg, Mem oria ne 11-02 Route: l 16:40: IVP, Preet 00 Q5Min, Dosing Weight 106.818, kg, PRN Pain Score 7-10, Start date: 11/02/13 11:40:00, Duration: 4 doses or times, Stop date: Limited # of times Flumazenil 2013-0 No 0.2 mg, Johnson laura 11-02 Route: l 16:40: IVP, PRN, [place] 00 Dosing Weight 106.818, kg, PRN Benzodiaze pine Reversal, Initial dose, Start date: 11/02/13 11:40:00, Duration: 30 day, Stop date: 12/02/13 11:39:00 Naloxone 2014-0 No 0.04 mg, Memor ia 11-02 Route: l 16:40: IVP, [place] 00 Q2MIN, Dosing Weight 106.818, kg, PRN Narcotic Reversal, Start date: 11/02/13 11:40:00, Duration: 8 doses or times, Stop date: Limited # of times Hydralazine 2013-0 No 10 mg, Johnson laura 11-02 Route: l 16:40: IVP, [place] 00 Q20Min, Dosing Weight 106.818, kg, PRN Elevated BP, Start date: 11/02/13 11:40:00, Duration: 2 doses or times, Stop date: Limited # of times Oxycodone 2014-0 No 5 mg, Memoria 11-02 Route: PO, l 16:40: Drug form: Preet 00 TAB, Q4H, Dosing Weight 106.818, kg, PRN Pain Score 4-6, Start date: 11/02/13 11:40:00, Duration: 30 day, Stop date: 12/02/13 11:39:00 Metoprolol 2014-0 No 1 mg, Memori a 11-02 Route: l 16:40: IVP, Preet 00 Q5Min, Dosing Weight 106.818, kg, PRN Other -See Comment, Start date: 11/02/13 11:40:00, Duration: 5 doses or times, Stop date: Limited # of times Metoprolol 2014-0 No 1 mg, Memori a 11-02 Route: l 16:40: IVP, [place] 00 Q5Min, Dosing Weight 106.818, kg, PRN Other -See Comment, Start date: 11/02/13 11:40:00, Duration: 5 doses or times, Stop date: Limited # of times Ondansetron No 4 mg, Memor ia 11-02 Route: l 16:40: IVP, ONCE, Preet 00 Dosing Weight 106.818, kg, PRN Nausea & Vomiting, Start date: 11/02/13 11:40:00 Acetaminoph Yes Notes: Do M emoria en 325 MG / 11-02 not exceed l Hydrocodone 16:40: 4gm/day of Preet Bitartrate 00 acetaminop 10 MG Oral hen. (Same Tablet as: [place] [[place] 325/10) 10325] Fentanyl No 25 Memoria 11-02 microgram, l 16:40: Route: [place] 00 IVP, Q5Min, Dosing Weight 106.818, kg, PRN Pain Score 4-6, Start date: 11/02/13 11:40:00, Duration: 4 doses or times, Stop date: Limited # of times Hydromorpho No 0.5 mg, Mem oria ne 11-02 Route: l 16:40: IVP, Preet 00 Q5Min, Dosing Weight 106.818, kg, PRN Pain Score 7-10, Start date: 11/02/13 11:40:00, Duration: 4 doses or times, Stop date: Limited # of times Flumazenil No 0.2 mg, Johnson laura 11-02 Route: l 16:40: IVP, PRN, Preet 00 Dosing Weight 106.818, kg, PRN Benzodiaze pine Reversal, Initial dose, Start date: 11/02/13 11:40:00, Duration: 30 day, Stop date: 12/02/13 11:39:00 Naloxone No 0.04 mg, Memor ia 11-02 Route: l 16:40: IVP, [place] 00 Q2MIN, Dosing Weight 106.818, kg, PRN Narcotic Reversal, Start date: 11/02/13 11:40:00, Duration: 8 doses or times, Stop date: Limited # of times Hydralazine No 10 mg, Johnson laura 11-02 Route: l 16:40: IVP, [place]reet 00 Q20Min, Dosing Weight 106.818, kg, PRN Elevated BP, Start date: 11/02/13 11:40:00, Duration: 2 doses or times, Stop date: Limited # of times Oxycodone No 5 mg, Memoria 11-02 Route: PO, l 16:40: Drug form: Preet 00 TAB, Q4H, Dosing Weight 106.818, kg, PRN Pain Score 4-6, Start date: 11/02/13 11:40:00, Duration: 30 day, Stop date: 12/02/13 11:39:00 Acetaminoph Yes 1-2 tab, Me moria en 325 MG / 11-02 PO, Q4-6H, l Hydrocodone 16:37: Pain, # 30 [place] Bitartrate 00 tab, 0 7.5 MG Oral Refill(s) Tablet [[place] 7.5/325] Ciprofloxac Yes 500 mg = 1 Memoria in 500 MG 11-02 tab, PO, l Oral Tablet 16:37: Q12H, # 14 Preet [Cipro] 00 tab, 0 Refill(s) Acetaminoph Yes 1-2 tab, Me moria en 325 MG / 11-02 PO, Q4-6H, l Hydrocodone 16:37: Pain, # 30 [place] Bitartrate 00 tab, 0 7.5 MG Oral Refill(s) Tablet [[place] 7.5/325] Ciprofloxac Yes 500 mg = 1 Memoria in 500 MG -01 tab, PO, l Oral Tablet 16:37: Q12H, # 14 Preet [Cipro] 00 tab, 0 Refill(s) Acetaminoph Yes 1-2 tab, Me moria en 325 MG / 11-02 PO, Q4-6H, l Hydrocodone 16:37: Pain, # 30 [place] Bitartrate 00 tab, 0 7.5 MG Oral Refill(s) Tablet [[place] 7.5/325] Ciprofloxac Yes 500 mg = 1 Memoria in 500 MG 8-01 tab, PO, l Oral Tablet 16:37: Q12H, # 14 Preet [Cipro] 00 tab, 0 Refill(s) Hydromorpho No 0.3 mg, Mem oria ne 11-02 Route: l 16:34: IVP, Q3H, [place] Dosing Weight 106.818, kg, PRN Pain Score 4-6, Start date: 11/02/13 11:34:00, Duration: 30 day, Stop date: 12/02/13 11:33:00 Acetaminoph 2014-0 No 1 tab, Johnson laura en 325 MG / 11-02 Route: PO, l Hydrocodone 16:34: Dosing Herm yunier Bitartrate 00 Weight 10 MG Oral 106.818, Tablet kg, Q4H, PRN Pain Score 4-6, Start date: 11/02/13 11:34:00, Duration: 30 day, Stop date: 12/02/13 11:33:00 Hydromorpho 2014-0 No 0.3 mg, Mem oria ne 11-02 Route: l 16:34: IVP, Q3H, [place] Dosing Weight 106.818, kg, PRN Pain Score 4-6, Start date: 11/02/13 11:34:00, Duration: 30 day, Stop date: 12/02/13 11:33:00 Acetaminoph 2013-0 No 1 tab, Johnson laura en 325 MG / 11-02 Route: PO, l Hydrocodone 16:34: Dosing Herm yunier Bitartrate 00 Weight 10 MG Oral 106.818, Tablet kg, Q4H, PRN Pain Score 4-6, Start date: 11/02/13 11:34:00, Duration: 30 day, Stop date: 12/02/13 11:33:00 Hydromorpho 2014-0 No 0.3 mg, Mem oria ne 11-02 Route: l 16:34: IVP, Q3H, Preet Dosing Weight 106.818, kg, PRN Pain Score 4-6, Start date: 11/02/13 11:34:00, Duration: 30 day, Stop date: 12/02/13 11:33:00 Acetaminoph 2014-0 No 1 tab, Johnson laura en 325 MG / 11-02 Route: PO, l Hydrocodone 16:34: Dosing Herm yunier Bitartrate 00 Weight 10 MG Oral 106.818, Tablet kg, Q4H, PRN Pain Score 4-6, Start date: 11/02/13 11:34:00, Duration: 30 day, Stop date: 12/02/13 11:33:00 Gentamicin 2014-0 No 120 mg, Johnson laura Sulfate 11-02 Route: l (MCFP) 15:36: IVPB, Preet 00 ONCE, Dosing Weight 106.818, kg, Start date: 11/02/13 10:36:00, Stop date: 11/02/13 10:36:00 Gentamicin 2014-0 No 120 mg, Johnson laura Sulfate 11-02 Route: l (MCFP) 15:36: IVPB, Preet 00 ONCE, Dosing Weight 106.818, kg, Start date: 11/02/13 10:36:00, Stop date: 11/02/13 10:36:00 Gentamicin 2014-0 No 120 mg, Johnson laura Sulfate 11-02 Route: l (MCFP) 15:36: IVPB, Preet 00 ONCE, Dosing Weight 106.818, kg, Start date: 11/02/13 10:36:00, Stop date: 11/02/13 10:36:00 Ancef 2013-0 No 1 gm, Memoria 11-02 Route: l 15:35: IVPB, [place] 00 ONCE, Dosing Weight 106.818, kg, Start date: 11/02/13 10:35:00, Stop date: 11/02/13 10:35:00 Ancef 2013-0 No 1 gm, Memoria 11-02 Route: l 15:35: IVPB, Preet 00 ONCE, Dosing Weight 106.818, kg, Start date: 11/02/13 10:35:00, Stop date: 11/02/13 10:35:00 Ancef 2013-0 No 1 gm, Memoria 11-02 Route: l 15:35: IVPB, Preet 00 ONCE, Dosing Weight 106.818, kg, Start date: 11/02/13 10:35:00, Stop date: 11/02/13 10:35:00 Calcium 2013-0 No 1,000 mL, Memor ia Chloride 11-02 Rate: 25 l 0.0014 15:32: ml/hr, [place] MEQ/ML / 00 Infuse Potassium over: 40 Chloride hr, Route: 0.004 IV, Dosing MEQ/ML / Weight Sodium 106.818 Chloride kg, Total 0.103 Volume: MEQ/ML / 1,000, Sodium Start Lactate date: 0.028 11/02/13 MEQ/ML 10:32:00, Injectable Duration: Solution 30 day, Stop date: 12/02/13 10:31:00 Calcium 2013-0 No 1,000 mL, Memor ia Chloride 11-02 Rate: 25 l 0.0014 15:32: ml/hr, [place] MEQ/ML / 00 Infuse Potassium over: 40 Chloride hr, Route: 0.004 IV, Dosing MEQ/ML / Weight Sodium 106.818 Chloride kg, Total 0.103 Volume: MEQ/ML / 1,000, Sodium Start Lactate date: 0.028 11/02/13 MEQ/ML 10:32:00, Injectable Duration: Solution 30 day, Stop date: 12/02/13 10:31:00 Calcium 2013-0 No 1,000 mL, Memor ia Chloride 11-02 Rate: 25 l 0.0014 15:32: ml/hr, Preet MEQ/ML / 00 Infuse Potassium over: 40 Chloride hr, Route: 0.004 IV, Dosing MEQ/ML / Weight Sodium 106.818 Chloride kg, Total 0.103 Volume: MEQ/ML / 1,000, Sodium Start Lactate date: 0.028 11/02/13 MEQ/ML 10:32:00, Injectable Duration: Solution 30 day, Stop date: 12/02/13 10:31:00 Glucosamine 2013- Yes 1,500 mg, M emoria & 7-25 PO, BID, 0 l Chondroitin 18:00: Refill(s) H ermann with MSM Glucosamine Yes 1,500 mg, M emoria & 7-25 PO, BID, 0 l Chondroitin 18:00: Refill(s) H ermann with MSM Glucosamine Yes 1,500 mg, M emoria & 7-25 PO, BID, 0 l Chondroitin 18:00: Refill(s) H ermann with MSM Ascorbic Yes 0 Memoria Acid / 25 Refill(s) l Biotin / 17:59: Preet Folic Acid 00 / Niacin / pantothenat e / pyridoxine / Riboflavin / Thiamine / Vitamin B 12 levothyroxi Yes 0 Memori a ne 88 mcg 7-25 Refill(s) l (0.088 mg) 17:59: [place] oral 00 capsule Ascorbic Yes 0 Memoria Acid / 7-25 Refill(s) l Biotin / 17:59: [place] Folic Acid 00 / Niacin / pantothenat e / pyridoxine / Riboflavin / Thiamine / Vitamin B 12 levothyroxi Yes 0 Memori a ne 88 mcg 7-25 Refill(s) l (0.088 mg) 17:59: Preet oral 00 capsule Ascorbic Yes 0 Memoria Acid / 7-25 Refill(s) l Biotin / 17:59: Preet Folic Acid 00 / Niacin / pantothenat e / pyridoxine / Riboflavin / Thiamine / Vitamin B 12 levothyroxi Yes 0 Memori a ne 88 mcg 7-25 Refill(s) l (0.088 mg) 17:59: [place] oral 00 capsule Atenolol 25 Yes 25 mg = 1 M emoria MG Oral 7-25 tab, PO, l Tablet 17:57: Daily, # [place] 00 30 tab, 0 Refill(s) Atenolol 25 Yes 25 mg = 1 M emoria MG Oral 7-25 tab, PO, l Tablet 17:57: Daily, # Preet 00 30 tab, 0 Refill(s) Atenolol 25 0 Yes 25 mg = 1 M emoria MG Oral 7-25 tab, PO, l Tablet 17:57: Daily, # [place] 00 30 tab, 0 Refill(s) Vital Signs Vital Name Observation Time Observation Value Comments Source Systolic (mm Hg) 2015-07-18 19:00:00 Johnson rial [place] Diastolic (mm Hg) 2015-07-18 19:00:00 Mem orial Preet Respitory Rate 2015-07-18 19:00:00 Memori al Preet Respitory Rate 2015-07-18 17:45:00 Memori al Preet Systolic (mm Hg) 2015-07-18 17:45:00 Johnson rial Preet Diastolic (mm Hg) 2015-07-18 17:45:00 Mem orial Preet Systolic (mm Hg) 2015-07-18 17:30:00 Johnson rial Preet Diastolic (mm Hg) 2015-07-18 17:30:00 Mem orial [place] Respitory Rate 2015-07-18 17:30:00 Memori al Preet Temperature Oral (F) 2015-07-15 21:02:00 98.0 F [facility] [place] Heart Rate 2015-07-15 21:02:00 [facility] [place] BMI Calculated 2015-07-15 21:00:00 Memori al [place] Weight 2015-07-15 21:00:00 [facility] [place] Height 2015-07-15 21:00:00 175.26 cm [facility] [place] Systolic (mm Hg) 2015-07-10 22:00:00 Johnson rial Preet Diastolic (mm Hg) 2015-07-10 22:00:00 Mem orial [place] Systolic (mm Hg) 2015-07-10 21:45:00 Johnson rial [place] Diastolic (mm Hg) 2015-07-10 21:45:00 Mem orial [place] Systolic (mm Hg) 2015-07-10 21:30:00 Johnson rial Preet Diastolic (mm Hg) 2015-07-10 21:30:00 Mem orial [place] Respitory Rate 2015-07-10 21:15:00 Memori al [place] Respitory Rate 2015-07-10 21:00:00 Memori al [place] Respitory Rate 2015-07-10 20:45:00 Memori al Preet Heart Rate 2015-07-08 21:31:00 [facility] [place] Temperature Oral (F) 2015-07-08 21:31:00 98 F [facility] [place] Height 2015-07-08 20:07:00 176.53 cm [facility] [place] BMI Calculated 2015-07-08 20:07:00 Memori al [place] Weight 2015-07-08 20:07:00 [facility] [place] Diastolic (mm Hg) 2013-11-02 18:15:00 Mem orial [place] Systolic (mm Hg) 2013-11-02 18:15:00 Johnson rial Preet Diastolic (mm Hg) 2013-11-02 18:00:00 Mem orial [place] Systolic (mm Hg) 2013-11-02 18:00:00 Johnson rial [place] Respitory Rate 2013-11-02 17:45:00 Memori al [place] Respitory Rate 2013-11-02 17:30:00 Memori al [place] Diastolic (mm Hg) 2013-11-02 17:30:00 Mem shirley [place] Systolic (mm Hg) 2013-11-02 17:30:00 Johnson jennifer Preet Respitory Rate 2013-11-02 17:24:00 Memori al Preet Heart Rate 2013-11-02 15:44:00 [facility] [place] Heart Rate 2013-10-26 18:35:00 [facility] Preet Temperature Oral (F) 2013-10-26 18:35:00 97.6 F [facility] [place] Weight 2013-10-26 17:36:00 [facility] [place] BMI Calculated 2013-10-26 17:36:00 Memori al [place] Height 2013-10-26 17:36:00 175.26 cm [facility] Procedures Procedure Date / Time Performed Performing Clinician [facility] e Cystoscopy<sup>1</sup> 2013-02-23 06:00:00 Abdi ial Preet [facility] ESWL of kidney [facility] Hern[facility] nn Rotator cuff [facility] Preet repair<sup>3</sup> [facility] Cyst - diagnostic [facility] nn aspiration<sup>2</sup> Tonsillectomy and [facility] nn adenoidectomy<sup>4</sup> Ureteroscopy<sup>5</sup> Vince cao Preet Plan of Care Planned Activity Planned Date Details Comments Source Future Scheduled 2023-01-28 [facility] Test 06:34:40 malignant neoplasm of colon (procedure) [code = 301663473] Future Scheduled 2023-01-28 [facility] Test 06:34:40 malignant neoplasm of colon (procedure) [code = 057871086] Future Scheduled 2023-01-28 [facility] Test 06:34:40 malignant neoplasm of colon (procedure) [code = 187422242] Future Scheduled 2023-01-28 COVID-19 VACCINE (#1) [facility] Test 06:34:40 [code = COVID-19 VACCINE (#1)] Future Scheduled 2023-01-28 [facility] Test 06:34:40 malignant neoplasm of colon (procedure) [code = 196918160] Future Scheduled 2023-01-28 [facility] Test 06:34:40 malignant neoplasm of colon (procedure) [code = 409412214] Future Scheduled 2023-01-28 SHINGLES VACCINES (1 [facility] Test 06:34:40 of 2) [code = SHINGLES VACCINES (1 of 2)] Future Scheduled 2023-01-28 65+ PNEUMOCOCCAL [facility] Test 06:34:40 VACCINE (1 - PCV) [code = 65+ PNEUMOCOCCAL VACCINE (1 - PCV)] Future Scheduled 2023-01-28 INFLUENZA VACCINE (#1) [facility] Test 06:34:40 [code = INFLUENZA VACCINE (#1)] Future Scheduled 2023-01-14 [facility] Test 11:36:36 malignant neoplasm of colon (procedure) [code = 756552816] Future Scheduled 2023-01-14 [facility] Test 11:36:36 malignant neoplasm of colon (procedure) [code = 775441707] Future Scheduled 2023-01-14 [facility] Test 11:36:36 malignant neoplasm of colon (procedure) [code = 018937117] Future Scheduled 2023-01-14 COVID-19 VACCINE (#1) [facility] Test 11:36:36 [code = COVID-19 VACCINE (#1)] Future Scheduled 2023-01-14 [facility] Test 11:36:36 malignant neoplasm of colon (procedure) [code = 852910769] Future Scheduled 2023-01-14 Screening for [facility] Test 11:36:36 malignant neoplasm of colon (procedure) [code = 080146570] Future Scheduled 2023-01-14 SHINGLES VACCINES (1 Met [facility] Test 11:36:36 of 2) [code = SHINGLES VACCINES (1 of 2)] Future Scheduled 2023-01-14 RSV VACCINES > 60 YR Met [facility] Test 11:36:36 (1 - 1-dose 60+ series) [code = RSV VACCINES > 60 YR (1 - 1-dose 60+ series)] Future Scheduled 2023-01-14 65+ PNEUMOCOCCAL [facility] Test 11:36:36 VACCINE (1 - PCV) [code = 65+ PNEUMOCOCCAL VACCINE (1 - PCV)] Future Scheduled 2023-01-14 [facility]UENZA [facility]ACCINE (#[facility]) [facility] 11:36:36 [code = INFLUENZA VACCINE (#1)] Future Scheduled 2022-07-03 COVID-19 VACCINE (#1) [facility] Test 05:23:07 [code = COVID-19 VACCINE (#1)] Future Scheduled 2022-07-03 COLONOSCOPY SCREENING [facility] Test 05:23:07 [code = COLONOSCOPY SCREENING] Future Scheduled 2022-07-03 SHINGLES VACCINES (1 [facility] Test 05:23:07 of 2) [code = SHINGLES VACCINES (1 of 2)] Future Scheduled 2022-07-03 65+ [facility]CCAL [facility] Test 05:23:07 VACCINE (1 - PCV) [code = 65+ PNEUMOCOCCAL VACCINE (1 - PCV)] Future Scheduled 2022-07-03 [facility] 05:23:07 [code = INFLUENZA VACCINE] Encounters Start End Encounter Admission Attending Care Care Encounter Source Date/Time Date/Time Type Type Clinicians Facility Department ID 2023-02-01 2023-02-01 Outpatient [facility] [id number] [facility] 00:00:00 00:00:00 [id number] [facility] 2022-04-04 2022-04-04 Outpatient [facility] [id number] [facility] 00:00:00 00:00:00 [id number] Medica l Group 2022-03-02 2022-03-02 Outpatient [facility] [id number] [facility] 00:00:00 00:00:00 [id number] Med[facility] Group 2022-03-02 2022-03-02 Outpatient [facility] [id number] [facility] 00:00:00 00:00:00 [id number] Medica l Group 2022-03-02 2022-03-02 [facility] [id number] [facility] 00:00:00 00:00:00 [id number] Medica l Group 2021-10-16 2021-10-16 Outpatient [facility] [id number] [facility]oted 00:00:00 00:00:00 [id number] Medica l Group 2021-09-17 2021-09-17 Outpatient [facility] [id number] [facility] 12:00:00 12:00:00 [id number] Med[facility] Group 2015-07-24 2015-07-25 [id number] Memoria 14:25:00 04:59:00 r [place] 12 [facility] 2015-07-24 2015-07-25 Outpatient [facility] [id number] Memoria 14:25:00 04:59:00 r [place] 12 [facility] 2015-07-24 2015-07-24 Outpatient Vicenta SE [facility] [id number] 09:25:00 23:59:00 [facility] 12 2015-07-18 2015-07-18 OBS Day [facility] [id number] Memoria 14:59:00 19:00:00 Surgery r [place] 03 [facility] 2015-07-18 2015-07-18 OBS Day [facility] [id number] Memoria 14:59:00 19:00:00 Surgery r [place] 03 [facility] 2015-07-18 2015-07-18 Outpatient Vicenta SE [facility] [id number] 09:59:00 14:00:00 [facility] 03 2015-07-10 2015-07-10 OBS Day nullFlavo [facility] [id number] Memoria 16:57:00 22:15:00 Surgery r [place] 02 [facility] 2015-07-10 2015-07-10 OBS Day [facility] [id number] Memoria 16:57:00 22:15:00 Surgery r [place] 02 [facility] 2015-07-10 2015-07-10 Outpatient Vicenta SE [facility] [id number] 11:57:00 17:15:00 [facility] 02 2013-11-22 2013-11-23 Outpatient [facility] [id number] Memoria 13:50:00 04:59:00 r Preet 33 [facility] 2013-11-22 2013-11-23 Outpatient [facility] [id number] Memoria 13:50:00 04:59:00 r [place] 33 [facility] 2013-11-22 2013-11-22 Outpatient Vicenta [id number] 08:50:00 23:59:00 [facility] [id number] 2013-11-09 [facility] [place] [id number] Memoria 16:29:00 04:59:00 r [place] 19 [facility] 2013-11-08 2013-11-09 [facility] [place] [id number] Memoria 16:29:00 04:59:00 r Preet 19 [facility] 2013-11-08 2013-11-08 Outpatient Yadav, [id number] 11:29:00 23:59:00 Nilo Shefali [id number] [id number] 2013-11-02 OBS Day [facility] [id number] Memoria 13:34:00 18:30:00 Surgery r [place] 01 [facility] 2013-11-02 2013-11-02 OBS Day [facility] [id number] Memoria 13:34:00 18:30:00 Surgery r [place] 01 [facility] 2013-11-02 2013-11-02 Outpatient Yadav, [id number] 08:34:00 13:30:00 Nilo Shefali [id number] Results Test Description Test Time Test Comments Results Result Comments Source CHEM PANEL 2015-07-15 21:39:00 Test Item Value Reference Range Interpretation Comme nts Creatinine Lvl (test code = Creatinine Lvl) 1.67 0.50-1.40 [id number] 21:39:00 Test Item Value Reference Range Interpretation Comments BUN (test code = BUN) 33 7-22 [facility]2016-04-12 21:39:00 Test Item Value Reference Range Interpretation Comments Glucose Lvl (test code = Glucose Lvl) 109 70-99 [facility]2016-04-12 21:39:00 Test Item Value Reference Range Interpretation Comments eGFR (test code = eGFR) 44 [facility]2016-04-12 21:39:00 Test Item Value Reference Range Interpretation Comments Calcium Lvl (test code = Calcium Lvl) 8.8 8.5-10.5 [facility]2016-04-12 21:39:00 Test Item Value Reference Range Interpretation Comments CO2 (test code = CO2) 24 24-32 [facility]2016-04-12 21:39:00 Test Item Value Reference Range Interpretation Comments AGAP (test code = AGAP) 9.9 10.0-20.0 [facility]2016-04-12 21:39:00 Test Item Value Reference Range Interpretation Comments Chloride Lvl (test code = Chloride Lvl) 112 95-109 [facility]2016-04-12 21:39:00 Test Item Value Reference Range Interpretation Comments Sodium Lvl (test code = Sodium Lvl) 142 135-145 [facility]2016-04-12 21:39:00 Test Item Value Reference Range Interpretation Comments Potassium Lvl (test code = Potassium 3.9 3.5-5.1 Lvl) [facility] AND [id number] 21:39:00 Test Item Value Reference Range Interpretation Comments UA Mucus (test code = UA Mucus) Few /LPF [facility] AND [id number] 21:39:00 Test Item Value Reference Range Interpretation Comments UA Color (test code = UA Color) Jane [facility] AND [id number] 21:39:00 Test Item Value Reference Range Interpretation Comments UA Sq Epi (test code = UA Sq Epi) None Seen [facility] AND [id number] 21:39:00 Test Item Value Reference Range Interpretation Comments UA Bili (test code = Negative *NA*(07/15/15 UA Bili) 4:39 PM) [facility] AND [id number] 21:39:00 Test Item Value Reference Range Interpretation Comments UA Ketones (test code = UA Negative mg/dL Ketones) [facility] AND [id number] 21:39:00 Test Item Value Reference Range Interpretation Comments UA Nitrite (test code Positive *ABN*(07/15/15 = UA Nitrite) 4:39 PM) [facility] AND [id number] 21:39:00 Test Item Value Reference Range Interpretation Comments UA Urobilinogen (test code = UA 4.0 0.1-1.0 Urobilinogen) [facility] AND [id number] 21:39:00 Test Item Value Reference Range Interpretation Comments UA Blood (test code = Moderate *ABN*(07/15/15 UA Blood) 4:39 PM) [facility] AND [id number] 21:39:00 Test Item Value Reference Range Interpretation Comments UA Leuk Est (test code Trace *ABN*(07/15/15 = UA Leuk Est) 4:39 PM) [facility] AND [id number] 21:39:00 Test Item Value Reference Range Interpretation Comments UA WBC (test code = 4 See_Comment [Automa surya message] The UA WBC) system which ge nerated this result transmit surya reference range : <=5. The reference range was not used to interpr et this result as bertha l/abnormal. [facility] AND [id number] 21:39:00 Test Item Value Reference Range Interpretation Comments UA RBC (test code = no gt See_Comment [Automa surya message] The UA RBC) system which ge nerated this result transmit surya reference range : <=2. The reference range was not used to interpr et this result as bertha l/abnormal. [facility] AND [id number] 21:39:00 Test Item Value Reference Range Interpretation Comments UA Glucose (test code = UA Negative mg/dL Glucose) [facility] AND [id number] 21:39:00 Test Item Value Reference Range Interpretation Comments UA Protein (test code = UA Protein) 30 mg/dL [facility] AND [id number] 21:39:00 Test Item Value Reference Range Interpretation Comments UA pH (test code = UA pH) 6.0 5.0-8.0 [facility] AND [id number] 21:39:00 Test Item Value Reference Range Interpretation Comments UA Turbidity (test code = Clear (07/15/15 4:39 UA Turbidity) PM) [facility] AND [id number] 21:39:00 Test Item Value Reference Range Interpretation Comments UA Spec Grav (test code = UA Spec Grav) 1.023 [id number] 21:39:00 Test Item Value Reference Range Interpretation Comments Creatinine Lvl (test code = Creatinine 1.67 0.50-1.40 Lvl) [facility]2016-04-12 21:39:00 Test Item Value Reference Range Interpretation Comments BUN (test code = BUN) 33 7-22 [facility]2016-04-12 21:39:00 Test Item Value Reference Range Interpretation Comments Glucose Lvl (test code = Glucose Lvl) 109 70-99 [facility]2016-04-12 21:39:00 Test Item Value Reference Range Interpretation Comments eGFR (test code = eGFR) 44 [facility]2016-04-12 21:39:00 Test Item Value Reference Range Interpretation Comments Calcium Lvl (test code = Calcium Lvl) 8.8 8.5-10.5 [facility] [facility]00 Test Item Value Reference Range Interpretation Comments CO2 (test code = CO2) 24 24-32 [facility]2016-04-12 21:39:00 Test Item Value Reference Range Interpretation Comments AGAP (test code = AGAP) 9.9 10.0-20.0 [facility]2016-04-12 21:39:00 Test Item Value Reference Range Interpretation Comments Chloride Lvl (test code = Chloride Lvl) 112 95-109 [facility]2016-04-12 21:39:00 Test Item Value Reference Range Interpretation Comments Sodium Lvl (test code = Sodium Lvl) 142 135-145 [facility]2016-04-12 21:39:00 Test Item Value Reference Range Interpretation Comments Potassium Lvl (test code = Potassium 3.9 3.5-5.1 Lvl) [facility] AND [id number] 21:39:00 Test Item Value Reference Range Interpretation Comments UA Mucus (test code = UA Mucus) Few /LPF [facility] AND [id number] 21:39:00 Test Item Value Reference Range Interpretation Comments UA Color (test code = UA Color) Jane [facility] AND [id number] 21:39:00 Test Item Value Reference Range Interpretation Comments UA Sq Epi (test code = UA Sq Epi) None Seen [facility] AND [id number] 21:39:00 Test Item Value Reference Range Interpretation Comments UA Bili (test code = Negative *NA*(07/15/15 UA Bili) 4:39 PM) [facility] AND [id number] 21:39:00 Test Item Value Reference Range Interpretation Comments UA Ketones (test code = UA Negative mg/dL Ketones) [facility] AND [id number] 21:39:00 Test Item Value Reference Range Interpretation Comments UA Nitrite (test code Positive *ABN*(07/15/15 = UA Nitrite) 4:39 PM) [facility] AND [id number] 21:39:00 Test Item Value Reference Range Interpretation Comments UA Urobilinogen (test code = UA 4.0 0.1-1.0 Urobilinogen) [facility] AND [id number] 21:39:00 Test Item Value Reference Range Interpretation Comments UA Blood (test code = Moderate *ABN*(07/15/15 UA Blood) 4:39 PM) [facility] AND [id number] 21:39:00 Test Item Value Reference Range Interpretation Comments UA Leuk Est (test code Trace *ABN*(07/15/15 = UA Leuk Est) 4:39 PM) [facility] AND [id number] 21:39:00 Test Item Value Reference Range Interpretation Comments UA WBC (test code = UA WBC) 4 <=5 [facility] AND [id number] 21:39:00 Test Item Value Reference Range Interpretation Comments UA RBC (test code = UA RBC) no gt <=2 [facility] AND [id number] 21:39:00 Test Item Value Reference Range Interpretation Comments UA Glucose (test code = UA Negative mg/dL Glucose) [facility] AND [id number] 21:39:00 Test Item Value Reference Range Interpretation Comments UA Protein (test code = UA Protein) 30 mg/dL [facility] AND [id number] 21:39:00 Test Item Value Reference Range Interpretation Comments UA pH (test code = UA pH) 6.0 5.0-8.0 [facility] AND [id number] 21:39:00 Test Item Value Reference Range Interpretation Comments UA Turbidity (test code = Clear (07/15/15 4:39 UA Turbidity) PM) [facility] AND [id number] 21:39:00 Test Item Value Reference Range Interpretation Comments UA Spec Grav (test code = UA Spec Grav) 1.023 [facility]2016-04-12 21:39:00 Test Item Value Reference Range Interpretation Comments Creatinine Lvl (test code = Creatinine 1.67 0.50-1.40 Lvl) [facility]2016-04-12 21:39:00 Test Item Value Reference Range Interpretation Comments BUN (test code = BUN) 33 7-22 [facility]2016-04-12 21:39:00 Test Item Value Reference Range Interpretation Comments Glucose Lvl (test code = Glucose Lvl) 109 70-99 [facility]2016-04-12 21:39:00 Test Item Value Reference Range Interpretation Comments eGFR (test code = eGFR) 44 [facility]2016-04-12 21:39:00 Test Item Value Reference Range Interpretation Comments Calcium Lvl (test code = Calcium Lvl) 8.8 8.5-10.5 [facility]2016-04-12 21:39:00 Test Item Value Reference Range Interpretation Comments CO2 (test code = CO2) 24 24-32 [facility]2016-04-12 21:39:00 Test Item Value Reference Range Interpretation Comments AGAP (test code = AGAP) 9.9 10.0-20.0 [facility]2016-04-12 21:39:00 Test Item Value Reference Range Interpretation Comments Chloride Lvl (test code = Chloride Lvl) 112 95-109 [facility]2016-04-12 21:39:00 Test Item Value Reference Range Interpretation Comments Sodium Lvl (test code = Sodium Lvl) 142 135-145 [facility]2016-04-12 21:39:00 Test Item Value Reference Range Interpretation Comments Potassium Lvl (test code = Potassium 3.9 3.5-5.1 Lvl) [facility] AND [id number] 21:39:00 Test Item Value Reference Range Interpretation Comments UA Mucus (test code = UA Mucus) Few /LPF [facility] AND [id number] 21:39:00 Test Item Value Reference Range Interpretation Comments UA Color (test code = UA Color) Jane [facility] AND [id number] 21:39:00 Test Item Value Reference Range Interpretation Comments UA Sq Epi (test code = UA Sq Epi) None Seen [facility] AND [id number] 21:39:00 Test Item Value Reference Range Interpretation Comments UA Bili (test code = Negative *NA*(07/15/15 UA Bili) 4:39 PM) [facility] AND [id number] 21:39:00 Test Item Value Reference Range Interpretation Comments UA Ketones (test code = UA Negative mg/dL Ketones) [facility] AND [id number] 21:39:00 Test Item Value Reference Range Interpretation Comments UA Nitrite (test code Positive *ABN*(07/15/15 = UA Nitrite) 4:39 PM) [facility] AND [id number] 21:39:00 Test Item Value Reference Range Interpretation Comments UA Urobilinogen (test code = UA 4.0 0.1-1.0 Urobilinogen) [facility] AND [id number] 21:39:00 Test Item Value Reference Range Interpretation Comments UA Blood (test code = Moderate *ABN*(07/15/15 UA Blood) 4:39 PM) [facility] AND [id number] 21:39:00 Test Item Value Reference Range Interpretation Comments UA Leuk Est (test code Trace *ABN*(07/15/15 = UA Leuk Est) 4:39 PM) [facility] AND [id number] 21:39:00 Test Item Value Reference Range Interpretation Comments UA WBC (test code = UA WBC) 4 <=5 [facility] AND [id number] 21:39:00 Test Item Value Reference Range Interpretation Comments UA RBC (test code = UA RBC) no gt <=2 [facility] AND [id number] 21:39:00 Test Item Value Reference Range Interpretation Comments UA Glucose (test code = UA Negative mg/dL Glucose) [facility] AND [id number] 21:39:00 Test Item Value Reference Range Interpretation Comments UA Protein (test code = UA Protein) 30 mg/dL [facility] AND [id number] 21:39:00 Test Item Value Reference Range Interpretation Comments UA pH (test code = UA pH) 6.0 5.0-8.0 [facility] AND [id number] 21:39:00 Test Item Value Reference Range Interpretation Comments UA Turbidity (test code = Clear (07/15/15 4:39 UA Turbidity) PM) [facility] AND [id number] 21:39:00 Test Item Value Reference Range Interpretation Comments UA Spec Grav (test code = UA Spec Grav) 1.023 [facility]2016-04-06 16:53:23 Test Item Value Reference Range Interpretation Comments PSA (test code = PSA) 0.35 See_Comment [Auto mated message] The system which ge nerated this result transmit surya reference range : <=4.00. The reference r raymon was not used to interpr et this result as bertha l/abnormal. [facility]2016-04-06 16:53:23 Test Item Value Reference Range Interpretation Comments PSA (test code = PSA) 0.35 <=4.00 [facility]2016-04-06 16:53:23 Test Item Value Reference Range Interpretation Comments PSA (test code = PSA) 0.35 <=4.00 [id number] 21:15:00 Test Item Value Reference Range Interpretation Comments AGAP (test code = AGAP) 10.2 10.0-20.0 [facility]DyjvhfxAWQUMWOURGMI8642-31-10 21:15:00 Test Item Value Reference Range Interpretation Comments eGFR (test code = eGFR) 28 [facility] HospitalDtrrlqgZGNLEFPVPAIT7806-78-51 21:15:00 Test Item Value Reference Range Interpretation Comments Chloride Lvl (test code = Chloride Lvl) 108 95-109 [facility] HospitalSjgkxziHGUAZYSDKULB7612-24-83 21:15:00 Test Item Value Reference Range Interpretation Comments Calcium Lvl (test code = Calcium Lvl) 8.6 8.5-10.5 [facility] HospitalFjalmrbCNPJFIQXROBQ8754-40-44 21:15:00 Test Item Value Reference Range Interpretation Comments CO2 (test code = CO2) 25 24-32 [facility] Hospital[id number] 21:15:00 Test Item Value Reference Range Interpretation Comments Glucose Lvl (test code = Glucose Lvl) 113 70-99 [facility] HospitalUdtxarzYFFLNVYXOSCT1886-09-64 21:15:00 Test Item Value Reference Range Interpretation Comments Sodium Lvl (test code = Sodium Lvl) 139 135-145 [facility] HospitalHxdrfwePTUBWUCFHVLE6753-54-86 21:15:00 Test Item Value Reference Range Interpretation Comments Potassium Lvl (test code = Potassium 4.2 3.5-5.1 Lvl) [facility] HospitalGmpevlqSXESSJPLGARI3332-12-98 21:15:00 Test Item Value Reference Range Interpretation Comments BUN (test code = BUN) 26 7-22 [facility] HospitalKtzcommXMUXHKLLTFOH3260-92-73 21:15:00 Test Item Value Reference Range Interpretation Comments Creatinine Lvl (test code = Creatinine 2.39 0.50-1.40 Lvl) [id number] 21:15:00 Test Item Value Reference Range Interpretation Comments PTT (test code = PTT) 32.9 s 22.9-35.8 [facility]ujrkibXYRSLOSGBL9498-27-28 21:15:00 Test Item Value Reference Range Interpretation Comments PT (test code = PT) 14.0 s 12.0-14.7 [facility]UlgjrayTJDDTOISHL7898-07-98 21:15:00 Test Item Value Reference Range Interpretation Comments INR (test code = INR) 1.05 0.85-1.17 [facility]CsblqqeQMDEEVBYTA0588-32-16 21:15:00 Test Item Value Reference Range Interpretation Comments Segs (test code = Segs) 69.9 45.0-75.0 [facility]NpqcnlqXSWEFHPNIT3124-36-19 21:15:00 Test Item Value Reference Range Interpretation Comments Lymphocytes (test code = Lymphocytes) 19.6 20.0-40.0 [facility]ZrxghqnNXOKDPOCFN0046-97-14 21:15:00 Test Item Value Reference Range Interpretation Comments Monocytes (test code = Monocytes) 8.4 2.0-12.0 [facility]KtqbfcoMAWGSRDOKE1528-48-26 21:15:00 Test Item Value Reference Range Interpretation Comments Segs-Bands # (test code = Segs-Bands #) 6.4 1.5-8.1 [facility] HospitalBuezocbELXNVZSKUO1709-98-18 21:15:00 Test Item Value Reference Range Interpretation Comments Basophils (test code = 0.4 See_Comment [Aut omated message] The Basophils) system which ge nerated this result tra nsmitted reference range : <=1.0. The reference r raymon was not used to int erpret this result as normal/abnormal . [facility] HospitalDzrtstlSNLUJCLNQO4986-31-58 21:15:00 Test Item Value Reference Range Interpretation Comments Eosinophils (test code = 1.7 See_Comment [A utomated message] The Eosinophils) system which ge nerated this result tra nsmitted reference range : <=4.0. The reference r raymon was not used to int erpret this result as normal/abnormal . [facility]YwksmsvULYNDFOHRL8321-79-14 21:15:00 Test Item Value Reference Range Interpretation Comments Monocytes # (test code 0.8 See_Comment [Aut omated message] The = Monocytes #) system which generated this result tra nsmitted reference range : <=0.8. The reference r raymon was not used to int erpret this result as normal/abnormal . [facility] HospitalOwnkchzHGMVDGLTLH4789-17-52 21:15:00 Test Item Value Reference Range Interpretation Comments Lymphocytes # (test code = Lymphocytes 1.8 1.0-5.5 #) [facility]DmddypyNHPMPWSDEV8072-04-80 21:15:00 Test Item Value Reference Range Interpretation Comments Eosinophils # (test code 0.2 See_Comment [A utomated message] The = Eosinophils #) system whic h generated this result tra nsmitted reference range : <=0.5. The reference r raymon was not used to int erpret this result as normal/abnormal . [facility] HospitalIwgoblwADZGJNTJXD0523-71-50 21:15:00 Test Item Value Reference Range Interpretation Comments MPV (test code = MPV) 8.0 7.4-10.4 [facility]KyphjudDMSQXVAQXH0055-95-36 21:15:00 Test Item Value Reference Range Interpretation Comments Hgb (test code = Hgb) 13.2 14.0-18.0 [facility]LxzvzlfXHUKCEFGXJ4010-83-44 21:15:00 Test Item Value Reference Range Interpretation Comments MCV (test code = MCV) 81.6 80.0-94.0 [facility]EwhmtbxEJNSRQPGWY3347-98-29 21:15:00 Test Item Value Reference Range Interpretation Comments Hct (test code = Hct) 41.9 42.0-54.0 [facility]GyjugehCHLZENFABQ6735-97-93 21:15:00 Test Item Value Reference Range Interpretation Comments RDW (test code = RDW) 14.3 11.5-14.5 [facility]LflcdhjXTPSDMOHNA3012-58-74 21:15:00 Test Item Value Reference Range Interpretation Comments MCH (test code = MCH) 25.7 pg 27.0-31.0 [facility]KmlogvoQUYFCCOZFG3407-13-30 21:15:00 Test Item Value Reference Range Interpretation Comments MCHC (test code = MCHC) 31.5 32.0-36.0 [facility] HospitalFdptaygMKJJHETUIG1886-34-66 21:15:00 Test Item Value Reference Range Interpretation Comments Platelet (test code = Platelet) 192 133-450 [facility] HospitalOuosiboGSSELEHUKD0215-67-17 21:15:00 Test Item Value Reference Range Interpretation Comments WBC (test code = WBC) 9.1 3.7-10.4 [facility]FvssewpDBAXPUROAW3146-67-40 21:15:00 Test Item Value Reference Range Interpretation Comments RBC (test code = RBC) 5.14 4.70-6.10 [facility] AND [id number] 21:15:00 Test Item Value Reference Range Interpretation Comments UA pH (test code = UA pH) 5.0 5.0-8.0 [facility] AND [id number] 21:15:00 Test Item Value Reference Range Interpretation Comments UA Spec Grav (test code = UA Spec Grav) 1.028 [facility] AND [id number] 21:15:00 Test Item Value Reference Range Interpretation Comments UA Turbidity (test code = Clear (07/08/15 4:15 UA Turbidity) PM) [facility] AND [id number] 21:15:00 Test Item Value Reference Range Interpretation Comments UA Glucose (test code = UA Negative mg/dL Glucose) [facility] AND [id number] 21:15:00 Test Item Value Reference Range Interpretation Comments UA Protein (test code = UA Negative mg/dL Protein) [facility] AND [id number] 21:15:00 Test Item Value Reference Range Interpretation Comments UA Bili (test code = Negative *NA*(07/08/15 UA Bili) 4:15 PM) [facility] AND [id number] 21:15:00 Test Item Value Reference Range Interpretation Comments UA Ketones (test code = UA Negative mg/dL Ketones) [facility] AND [id number] 21:15:00 Test Item Value Reference Range Interpretation Comments UA Sq Epi (test code = UA Sq Epi) None Seen [facility] AND [id number] 21:15:00 Test Item Value Reference Range Interpretation Comments UA Leuk Est (test Negative (07/08/15 4:15 code = UA Leuk Est) PM) [facility] AND [id number] 21:15:00 Test Item Value Reference Range Interpretation Comments UA Nitrite (test code Positive *ABN*(07/08/15 = UA Nitrite) 4:15 PM) [facility] AND [id number] 21:15:00 Test Item Value Reference Range Interpretation Comments UA Urobilinogen (test code = UA 4.0 0.1-1.0 Urobilinogen) [facility] AND [id number] 21:15:00 Test Item Value Reference Range Interpretation Comments UA Blood (test code = Negative (07/08/15 4:15 UA Blood) PM) [facility] AND [id number] 21:15:00 Test Item Value Reference Range Interpretation Comments UA Color (test code = UA Color) Jane [facility] AND [id number] 21:15:00 Test Item Value Reference Range Interpretation Comments UA RBC (test code = 4 See_Comment [Automa surya message] The UA RBC) system which ge nerated this result transmit surya reference range : <=2. The reference range was not used to interpr et this result as bertha l/abnormal. [facility] AND [id number] 21:15:00 Test Item Value Reference Range Interpretation Comments UA WBC (test code = 2 See_Comment [Automa surya message] The UA WBC) system which ge nerated this result transmit surya reference range : <=5. The reference range was not used to interpr et this result as bertha l/abnormal. [facility] HospitalCbgvavqWAHLLFIOYORG6443-47-61 21:15:00 Test Item Value Reference Range Interpretation Comments AGAP (test code = AGAP) 10.2 10.0-20.0 [facility] HospitalFftvxgiSLJXWFQRFZAL2828-07-38 21:15:00 Test Item Value Reference Range Interpretation Comments eGFR (test code = eGFR) 28 [facility] HospitalMqmgemdIKYNRZHBCDGM8794-55-65 21:15:00 Test Item Value Reference Range Interpretation Comments Chloride Lvl (test code = Chloride Lvl) 108 95-109 [facility] HospitalAhizhnrCYPSFJJRRVMJ4598-60-03 21:15:00 Test Item Value Reference Range Interpretation Comments Calcium Lvl (test code = Calcium Lvl) 8.6 8.5-10.5 [facility] HospitalJnhuoipEVCYUAGBQDYA4534-00-98 21:15:00 Test Item Value Reference Range Interpretation Comments CO2 (test code = CO2) 25 24-32 [facility] HospitalVydtdhtQAYFDEVBEKZG4329-83-68 21:15:00 Test Item Value Reference Range Interpretation Comments Glucose Lvl (test code = Glucose Lvl) 113 70-99 [facility] HospitalIchxxroMCXPYSNUCINR5855-29-92 21:15:00 Test Item Value Reference Range Interpretation Comments Sodium Lvl (test code = Sodium Lvl) 139 135-145 [facility] HospitalNpdigfzGTTTTKDCZAUR8179-95-14 21:15:00 Test Item Value Reference Range Interpretation Comments Potassium Lvl (test code = Potassium 4.2 3.5-5.1 Lvl) [facility] HospitalWbmdstpANSXALOKAYOD8898-70-86 21:15:00 Test Item Value Reference Range Interpretation Comments BUN (test code = BUN) 26 7-22 [facility] HospitalCbjpdfoAXAFEQAGKEXS2886-47-22 21:15:00 Test Item Value Reference Range Interpretation Comments Creatinine Lvl (test code = Creatinine 2.39 0.50-1.40 Lvl) [facility]QiwbuoiALKQCYZMWD0315-78-06 21:15:00 Test Item Value Reference Range Interpretation Comments PTT (test code = PTT) 32.9 s 22.9-35.8 [facility]MkyxawgAUCGEFEHOO3507-43-71 21:15:00 Test Item Value Reference Range Interpretation Comments PT (test code = PT) 14.0 s 12.0-14.7 [facility]QofpkbyZVHNHASRUM1654-34-31 21:15:00 Test Item Value Reference Range Interpretation Comments INR (test code = INR) 1.05 0.85-1.17 [facility]XkqdmyqJJOIHLQSUR9151-68-24 21:15:00 Test Item Value Reference Range Interpretation Comments Segs (test code = Segs) 69.9 45.0-75.0 [facility]UvasimrXFXMLSXRXN6798-85-77 21:15:00 Test Item Value Reference Range Interpretation Comments Lymphocytes (test code = Lymphocytes) 19.6 20.0-40.0 [facility]DyktccqQJXHPEHHYK8876-29-55 21:15:00 Test Item Value Reference Range Interpretation Comments Monocytes (test code = Monocytes) 8.4 2.0-12.0 [facility]VofrlcpQGOYSHFIXA3454-03-56 21:15:00 Test Item Value Reference Range Interpretation Comments Segs-Bands # (test code = Segs-Bands #) 6.4 1.5-8.1 [facility]OmqxjodOEKFZVKOFX0340-08-25 21:15:00 Test Item Value Reference Range Interpretation Comments Basophils (test code = Basophils) 0.4 <=1.0 [facility]NefkxzaBYQYXBQQGL8465-66-17 21:15:00 Test Item Value Reference Range Interpretation Comments Eosinophils (test code = Eosinophils) 1.7 <=4.0 [facility]EnkgkzzPTYUVTGINY0618-18-03 21:15:00 Test Item Value Reference Range Interpretation Comments Monocytes # (test code = Monocytes #) 0.8 <=0.8 [facility]PjoktvcXZKRBHNAFE0137-84-00 21:15:00 Test Item Value Reference Range Interpretation Comments Lymphocytes # (test code = Lymphocytes 1.8 1.0-5.5 #) [facility]TxjgkbjRUTOLRDSIE3392-62-18 21:15:00 Test Item Value Reference Range Interpretation Comments Eosinophils # (test code = Eosinophils 0.2 <=0.5 #) [facility]LfkuzacSEQZKTANDG5233-15-14 21:15:00 Test Item Value Reference Range Interpretation Comments MPV (test code = MPV) 8.0 7.4-10.4 [facility] HospitalZhuiayoJKQZDTNJHD2796-32-04 21:15:00 Test Item Value Reference Range Interpretation Comments Hgb (test code = Hgb) 13.2 14.0-18.0 [facility]VkazkfsANHCZKRBNF6479-05-01 21:15:00 Test Item Value Reference Range Interpretation Comments MCV (test code = MCV) 81.6 80.0-94.0 [facility]FtxfswyKYMORNTOLI6568-45-09 21:15:00 Test Item Value Reference Range Interpretation Comments Hct (test code = Hct) 41.9 42.0-54.0 [facility]ZyazcgmZVUGSHIKZJ0760-86-79 21:15:00 Test Item Value Reference Range Interpretation Comments RDW (test code = RDW) 14.3 11.5-14.5 [facility]KwcvhotNTUNBVFKQQ7040-98-07 21:15:00 Test Item Value Reference Range Interpretation Comments MCH (test code = MCH) 25.7 pg 27.0-31.0 [facility]XesewgxBYZXTBROUA9184-41-44 21:15:00 Test Item Value Reference Range Interpretation Comments MCHC (test code = MCHC) 31.5 32.0-36.0 [facility] HospitalRuiyalmKHMKOWEZUX7826-04-03 21:15:00 Test Item Value Reference Range Interpretation Comments Platelet (test code = Platelet) 192 133-450 [facility]LjrfuiaKHNNSGQGHX6822-37-79 21:15:00 Test Item Value Reference Range Interpretation Comments WBC (test code = WBC) 9.1 3.7-10.4 [facility]KhfzmzaNHGRJPRHWQ2425-96-53 21:15:00 Test Item Value Reference Range Interpretation Comments RBC (test code = RBC) 5.14 4.70-6.10 [facility] AND [id number] 21:15:00 Test Item Value Reference Range Interpretation Comments UA pH (test code = UA pH) 5.0 5.0-8.0 [facility] AND [id number] 21:15:00 Test Item Value Reference Range Interpretation Comments UA Spec Grav (test code = UA Spec Grav) 1.028 [facility] AND [id number] 21:15:00 Test Item Value Reference Range Interpretation Comments UA Turbidity (test code = Clear (07/08/15 4:15 UA Turbidity) PM) [facility] AND [id number] 21:15:00 Test Item Value Reference Range Interpretation Comments UA Glucose (test code = UA Negative mg/dL Glucose) [facility] AND [id number] 21:15:00 Test Item Value Reference Range Interpretation Comments UA Protein (test code = UA Negative mg/dL Protein) [facility] AND [id number] 21:15:00 Test Item Value Reference Range Interpretation Comments UA Bili (test code = Negative *NA*(07/08/15 UA Bili) 4:15 PM) [facility] AND [id number] 21:15:00 Test Item Value Reference Range Interpretation Comments UA Ketones (test code = UA Negative mg/dL Ketones) [facility] AND [id number] 21:15:00 Test Item Value Reference Range Interpretation Comments UA Sq Epi (test code = UA Sq Epi) None [facility] Branch AND [id number] 21:15:00 Test Item Value Reference Range Interpretation Comments UA Leuk Est (test Negative (07/08/15 4:15 code = UA Leuk Est) PM) [facility] AND [id number] 21:15:00 Test Item Value Reference Range Interpretation Comments UA Nitrite (test code Positive *ABN*(07/08/15 = UA Nitrite) 4:15 PM) [facility] AND [id number] 21:15:00 Test Item Value Reference Range Interpretation Comments UA Urobilinogen (test code = UA 4.0 0.1-1.0 Urobilinogen) [facility] AND [id number] 21:15:00 Test Item Value Reference Range Interpretation Comments UA Blood (test code = Negative (07/08/15 4:15 UA Blood) PM) [facility] AND [id number] 21:15:00 Test Item Value Reference Range Interpretation Comments UA Color (test code = UA Color) Jane [facility] AND [id number] 21:15:00 Test Item Value Reference Range Interpretation Comments UA RBC (test code = UA RBC) 4 <=2 [facility] AND [id number] 21:15:00 Test Item Value Reference Range Interpretation Comments UA WBC (test code = UA WBC) 2 <=5 [id number] 21:15:00 Test Item Value Reference Range Interpretation Comments AGAP (test code = AGAP) 10.2 10.0-20.0 [facility] Hospital[id number] 21:15:00 Test Item Value Reference Range Interpretation Comments eGFR (test code = eGFR) 28 [facility] HospitalPxuvxjeAWESVDPSBSAV2043-04-61 21:15:00 Test Item Value Reference Range Interpretation Comments Chloride Lvl (test code = Chloride Lvl) 108 95-109 [facility] HospitalIuxfkkgIUDNTCPJRXBQ9614-28-40 21:15:00 Test Item Value Reference Range Interpretation Comments Calcium Lvl (test code = Calcium Lvl) 8.6 8.5-10.5 [facility] HospitalYkphvelKLMBESUHZKHM1379-10-08 21:15:00 Test Item Value Reference Range Interpretation Comments CO2 (test code = CO2) 25 24-32 [facility] HospitalTwwvntbNCXKXJUGELLC8234-86-27 21:15:00 Test Item Value Reference Range Interpretation Comments Glucose Lvl (test code = Glucose Lvl) 113 70-99 [facility] HospitalMivogibOPWVCXSBVROI5474-63-27 21:15:00 Test Item Value Reference Range Interpretation Comments Sodium Lvl (test code = Sodium Lvl) 139 135-145 [facility] HospitalEithewkDBZRZIIHWCPD4157-18-43 21:15:00 Test Item Value Reference Range Interpretation Comments Potassium Lvl (test code = Potassium 4.2 3.5-5.1 Lvl) [facility] HospitalDcmysacSYRSUEVROIUE4354-45-11 21:15:00 Test Item Value Reference Range Interpretation Comments BUN (test code = BUN) 26 7-22 [facility] HospitalEizeuzuXEFGSCXAXZLQ0683-85-34 21:15:00 Test Item Value Reference Range Interpretation Comments Creatinine Lvl (test code = Creatinine 2.39 0.50-1.40 Lvl) [facility]JUMBDBPTL5173-71-59 21:15:00 Test Item Value Reference Range Interpretation Comments PTT (test code = PTT) 32.9 s 22.9-35.8 [facility]QsfnnnkNKINKQVXWR5005-54-20 21:15:00 Test Item Value Reference Range Interpretation Comments PT (test code = PT) 14.0 s 12.0-14.7 [facility]VhuajvwCLTVLAFSFA4146-37-03 21:15:00 Test Item Value Reference Range Interpretation Comments INR (test code = INR) 1.05 0.85-1.17 [facility]TguhuekLAJLNTCSGD7773-68-27 21:15:00 Test Item Value Reference Range Interpretation Comments Segs (test code = Segs) 69.9 45.0-75.0 [facility]CcjplpoCCLONJANJE4299-93-43 21:15:00 Test Item Value Reference Range Interpretation Comments Lymphocytes (test code = Lymphocytes) 19.6 20.0-40.0 [facility]YuoqjhjYVOGMRIOOD6375-97-12 21:15:00 Test Item Value Reference Range Interpretation Comments Monocytes (test code = Monocytes) 8.4 2.0-12.0 [facility]ZepslebGJGYYTQEWE9951-53-18 21:15:00 Test Item Value Reference Range Interpretation Comments Segs-Bands # (test code = Segs-Bands #) 6.4 1.5-8.1 [facility]GfaqcmfZLBBUKKATR2494-77-35 21:15:00 Test Item Value Reference Range Interpretation Comments Basophils (test code = Basophils) 0.4 <=1.0 [facility]LvkpyofDKNPCEXMOL6325-14-86 21:15:00 Test Item Value Reference Range Interpretation Comments Eosinophils (test code = Eosinophils) 1.7 <=4.0 [facility] HospitalDkskmebMTSBUHOJWL2315-51-50 21:15:00 Test Item Value Reference Range Interpretation Comments Monocytes # (test code = Monocytes #) 0.8 <=0.8 [facility]LtpqrnmCPSSTSTRXP7601-06-68 21:15:00 Test Item Value Reference Range Interpretation Comments Lymphocytes # (test code = Lymphocytes 1.8 1.0-5.5 #) [facility]LqgoibwTQWCIYFBFJ2624-77-25 21:15:00 Test Item Value Reference Range Interpretation Comments Eosinophils # (test code = Eosinophils 0.2 <=0.5 #) [facility]WzjfaewPONNFZMLMB9529-50-50 21:15:00 Test Item Value Reference Range Interpretation Comments MPV (test code = MPV) 8.0 7.4-10.4 [facility]AmbtdlrVIHYAVQFNA0410-12-17 21:15:00 Test Item Value Reference Range Interpretation Comments Hgb (test code = Hgb) 13.2 14.0-18.0 [facility]MamqrutABDFIXEEGD8902-64-17 21:15:00 Test Item Value Reference Range Interpretation Comments MCV (test code = MCV) 81.6 80.0-94.0 [facility]XiipexqWRIQSIJWZA2310-27-75 21:15:00 Test Item Value Reference Range Interpretation Comments Hct (test code = Hct) 41.9 42.0-54.0 [facility]JanqtdnOZMMCBJKAD2696-28-37 21:15:00 Test Item Value Reference Range Interpretation Comments RDW (test code = RDW) 14.3 11.5-14.5 [facility] HospitalRqaicuaDQRYEFYXTC3946-60-62 21:15:00 Test Item Value Reference Range Interpretation Comments MCH (test code = MCH) 25.7 pg 27.0-31.0 [facility] HospitalTkpmanqWMAUZYNOPA6647-88-14 21:15:00 Test Item Value Reference Range Interpretation Comments MCHC (test code = MCHC) 31.5 32.0-36.0 [facility]OcyveiqBSTWWQLBZA5641-38-63 21:15:00 Test Item Value Reference Range Interpretation Comments Platelet (test code = Platelet) 192 133-450 [facility]MfvazziIXJIYHMTVS6632-22-61 21:15:00 Test Item Value Reference Range Interpretation Comments WBC (test code = WBC) 9.1 3.7-10.4 [facility]BsdxovzQSHUMTTWMK8481-42-70 21:15:00 Test Item Value Reference Range Interpretation Comments RBC (test code = RBC) 5.14 4.70-6.10 [facility] AND [id number] 21:15:00 Test Item Value Reference Range Interpretation Comments UA pH (test code = UA pH) 5.0 5.0-8.0 [facility] AND [id number] 21:15:00 Test Item Value Reference Range Interpretation Comments UA Spec Grav (test code = UA Spec Grav) 1.028 [facility] AND [id number] 21:15:00 Test Item Value Reference Range Interpretation Comments UA Turbidity (test code = Clear (07/08/15 4:15 UA Turbidity) PM) [facility] AND [id number] 21:15:00 Test Item Value Reference Range Interpretation Comments UA Glucose (test code = UA Negative mg/dL Glucose) [facility] AND [id number] 21:15:00 Test Item Value Reference Range Interpretation Comments UA Protein (test code = UA Negative mg/dL Protein) [facility] AND [id number] 21:15:00 Test Item Value Reference Range Interpretation Comments UA Bili (test code = Negative *NA*(07/08/15 UA Bili) 4:15 PM) [facility] AND [id number] 21:15:00 Test Item Value Reference Range Interpretation Comments UA Ketones (test code = UA Negative mg/dL Ketones) [facility] AND [id number] 21:15:00 Test Item Value Reference Range Interpretation Comments UA Sq Epi (test code = UA Sq Epi) None Seen [facility] AND [id number] 21:15:00 Test Item Value Reference Range Interpretation Comments UA Leuk Est (test Negative (07/08/15 4:15 code = UA Leuk Est) PM) [facility] AND [id number] 21:15:00 Test Item Value Reference Range Interpretation Comments UA Nitrite (test code Positive *ABN*(07/08/15 = UA Nitrite) 4:15 PM) [facility] AND [id number] 21:15:00 Test Item Value Reference Range Interpretation Comments UA Urobilinogen (test code = UA 4.0 0.1-1.0 Urobilinogen) [facility] AND [id number] 21:15:00 Test Item Value Reference Range Interpretation Comments UA Blood (test code = Negative (07/08/15 4:15 UA Blood) PM) [facility] AND [id number] 21:15:00 Test Item Value Reference Range Interpretation Comments UA Color (test code = UA Color) Jane [facility] AND [id number] 21:15:00 Test Item Value Reference Range Interpretation Comments UA RBC (test code = UA RBC) 4 <=2 [facility] AND [id number] 21:15:00 Test Item Value Reference Range Interpretation Comments UA WBC (test code = UA WBC) 2 <=5 [facility] 17:45:00 Test Item Value Reference Range Interpretation Comments PTT (test code = PTT) 30.3 s 22.9-35.8 [id number] 17:45:00 Test Item Value Reference Range Interpretation Comments INR (test code = INR) 0.91 0.85-1.17 [facility]YxfaghqBVIBXDOAEZ7734-03-23 17:45:00 Test Item Value Reference Range Interpretation Comments PT (test code = PT) 12.2 s 12.0-14.7 [facility] [id number] 17:45:00 Test Item Value Reference Range Interpretation Comments PSA (test code = PSA) 0.49 See_Comment [Auto mated message] The system which ge nerated this result transmit surya reference range : <=4.00. The reference r raymon was not used to interpr et this result as bertha l/abnormal. [facility]byhkqeDNDDGSYEPY4297-29-20 17:45:00 Test Item Value Reference Range Interpretation Comments PTT (test code = PTT) 30.3 s 22.9-35.8 [facility]VtzehkqILKMHSUNUU0209-64-97 17:45:00 Test Item Value Reference Range Interpretation Comments INR (test code = INR) 0.91 0.85-1.17 [facility]WlcgixrNPYNNWZACY7595-19-37 17:45:00 Test Item Value Reference Range Interpretation Comments PT (test code = PT) 12.2 s 12.0-14.7 [facility]2014-07-25 17:45:00 Test Item Value Reference Range Interpretation Comments PSA (test code = PSA) 0.49 <=4.00 [facility]EbtypasSNFELOPXCD9830-00-57 17:45:00 Test Item Value Reference Range Interpretation Comments PTT (test code = PTT) 30.3 s 22.9-35.8 [facility]CvyezcyJYIFBWEMEU0416-18-78 17:45:00 Test Item Value Reference Range Interpretation Comments INR (test code = INR) 0.91 0.85-1.17 [facility]MhbuwjcVBBXBEYPQB5751-97-63 17:45:00 Test Item Value Reference Range Interpretation Comments PT (test code = PT) 12.2 s 12.0-14.7 [facility]2014-07-25 17:45:00 Test Item Value Reference Range Interpretation Comments PSA (test code = PSA) 0.49 <=4.00 [facility] AND [id number] 17:40:00 Test Item Value Reference Range Interpretation Comments UA Urobilinogen (test code = UA <=1.0 mg/dL 0.1-1.0 Urobilinogen) [facility] AND [id number] 17:40:00 Test Item Value Reference Range Interpretation Comments UA Color (test code = UA Color) Ltyellow [facility] AND [id number] 17:40:00 Test Item Value Reference Range Interpretation Comments UA Sq Epi (test code = UA Sq Epi) None Seen [facility] AND [id number] 17:40:00 Test Item Value Reference Range Interpretation Comments UA Leuk Est (test Negative (10/26/13 12:40 code = UA Leuk Est) PM) [facility] AND [id number] 17:40:00 Test Item Value Reference Range Interpretation Comments UA WBC (test code = 1 See_Comment [Automa surya message] The UA WBC) system which ge nerated this result transmit surya reference range : <=5. The reference range was not used to interpr et this result as bertha l/abnormal. [facility] AND [id number] 17:40:00 Test Item Value Reference Range Interpretation Comments UA Nitrite (test code Negative (10/26/13 12:40 = UA Nitrite) PM) [facility] AND [id number] 17:40:00 Test Item Value Reference Range Interpretation Comments UA RBC (test code = no gt See_Comment [Automa surya message] The UA RBC) system which ge nerated this result transmit surya reference range : <=2. The reference range was not used to interpr et this result as bertha l/abnormal. [facility] AND [id number] 17:40:00 Test Item Value Reference Range Interpretation Comments UA Turbidity (test code = Clear (10/26/13 12:40 UA Turbidity) PM) [facility] AND [id number] 17:40:00 Test Item Value Reference Range Interpretation Comments UA Protein (test code = UA Negative mg/dL Protein) [facility] AND [id number] 17:40:00 Test Item Value Reference Range Interpretation Comments UA pH (test code = UA pH) 7.0 5.0-8.0 [facility] AND [id number] 17:40:00 Test Item Value Reference Range Interpretation Comments UA Spec Grav (test code = UA Spec Grav) 1.014 [facility] AND [id number] 17:40:00 Test Item Value Reference Range Interpretation Comments UA Glucose (test code = UA Negative mg/dL Glucose) [facility] AND [id number] 17:40:00 Test Item Value Reference Range Interpretation Comments UA Ketones (test code = UA Negative mg/dL Ketones) [facility] AND [id number] 17:40:00 Test Item Value Reference Range Interpretation Comments UA Blood (test code = Negative (10/26/13 12:40 UA Blood) PM) [facility] AND [id number] 17:40:00 Test Item Value Reference Range Interpretation Comments UA Bili (test code = Negative *NA*(10/26/13 UA Bili) 12:40 PM) [facility] AND [id number] 17:40:00 Test Item Value Reference Range Interpretation Comments UA Urobilinogen (test code = UA <=1.0 mg/dL 0.1-1.0 Urobilinogen) [facility] AND [id number] 17:40:00 Test Item Value Reference Range Interpretation Comments UA Color (test code = UA Color) Ltyellow [facility] AND [id number] 17:40:00 Test Item Value Reference Range Interpretation Comments UA Sq Epi (test code = UA Sq Epi) None Seen [facility] AND [id number] 17:40:00 Test Item Value Reference Range Interpretation Comments UA Leuk Est (test Negative (10/26/13 12:40 code = UA Leuk Est) PM) [facility] AND [id number] 17:40:00 Test Item Value Reference Range Interpretation Comments UA WBC (test code = UA WBC) 1 <=5 [facility] AND [id number] 17:40:00 Test Item Value Reference Range Interpretation Comments UA Nitrite (test code Negative (10/26/13 12:40 = UA Nitrite) PM) [facility] AND [id number] 17:40:00 Test Item Value Reference Range Interpretation Comments UA RBC (test code = UA RBC) no gt <=2 [facility] AND [id number] 17:40:00 Test Item Value Reference Range Interpretation Comments UA Turbidity (test code = Clear (10/26/13 12:40 UA Turbidity) PM) [facility] AND [id number] 17:40:00 Test Item Value Reference Range Interpretation Comments UA Protein (test code = UA Negative mg/dL Protein) [facility] AND [id number] 17:40:00 Test Item Value Reference Range Interpretation Comments UA pH (test code = UA pH) 7.0 5.0-8.0 [facility] AND [id number] 17:40:00 Test Item Value Reference Range Interpretation Comments UA Spec Grav (test code = UA Spec Grav) 1.014 [facility] AND [id number] 17:40:00 Test Item Value Reference Range Interpretation Comments UA Glucose (test code = UA Negative mg/dL Glucose) [facility] AND [id number] 17:40:00 Test Item Value Reference Range Interpretation Comments UA Ketones (test code = UA Negative mg/dL Ketones) [facility] [id number] 17:40:00 Test Item Value Reference Range Interpretation Comments UA Blood (test code = Negative (10/26/13 12:40 UA Blood) PM) [facility] [id number] 17:40:00 Test Item Value Reference Range Interpretation Comments UA Bili (test code = Negative *NA*(10/26/13 UA Bili) 12:40 PM) [facility] [id number] 17:40:00 Test Item Value Reference Range Interpretation Comments UA Urobilinogen (test code = UA <=1.0 mg/dL 0.1-1.0 Urobilinogen) [facility] [id number] 17:40:00 Test Item Value Reference Range Interpretation Comments UA Color (test code = UA Color) Ltyellow [facility] AND [id number] 17:40:00 Test Item Value Reference Range Interpretation Comments UA Sq Epi (test code = UA Sq Epi) None [facility] [id number] 17:40:00 Test Item Value Reference Range Interpretation Comments UA Leuk Est (test Negative (10/26/13 12:40 code = UA Leuk Est) PM) [facility] [id number] 17:40:00 Test Item Value Reference Range Interpretation Comments UA WBC (test code = UA WBC) 1 <=5 [facility] [id number] 17:40:00 Test Item Value Reference Range Interpretation Comments UA Nitrite (test code Negative (10/26/13 12:40 = UA Nitrite) PM) [facility] [id number] 17:40:00 Test Item Value Reference Range Interpretation Comments UA RBC (test code = UA RBC) no gt <=2 [facility] [id number] 17:40:00 Test Item Value Reference Range Interpretation Comments UA Turbidity (test code = Clear (10/26/13 12:40 UA Turbidity) PM) [facility] [id number] 17:40:00 Test Item Value Reference Range Interpretation Comments UA Protein (test code = UA Negative mg/dL Protein) [facility] AND [id number] 17:40:00 Test Item Value Reference Range Interpretation Comments UA pH (test code = UA pH) 7.0 5.0-8.0 [facility] AND [id number] 17:40:00 Test Item Value Reference Range Interpretation Comments UA Spec Grav (test code = UA Spec Grav) 1.014 [facility] AND [id number] 17:40:00 Test Item Value Reference Range Interpretation Comments UA Glucose (test code = UA Negative mg/dL Glucose) [facility] AND [id number] 17:40:00 Test Item Value Reference Range Interpretation Comments UA Ketones (test code = UA Negative mg/dL Ketones) [facility] AND [id number] 17:40:00 Test Item Value Reference Range Interpretation Comments UA Blood (test code = Negative (10/26/13 12:40 UA Blood) PM) [facility] AND [id number] 17:40:00 Test Item Value Reference Range Interpretation Comments UA Bili (test code = Negative *NA*(10/26/13 UA Bili) 12:40 PM) [facility]
[2023-02-18] MEDS ORDERED: ASPIRIN 81 MG CHEWABLE TABLET ONE (13:09)
[2023-02-18] MEDS ORDERED: NITROGLYCERIN 0.4 MG/TAB SL ONE (13:09)
[2023-02-18 13:13] LABS: Absolute Lymphocytes (CBC) 1.8 K/uL (0.7-4.9); Hematocrit 42.3 % (39.6-49.0); Lymphocytes % 26.2 % (15.3-44.8); MCV 80.6 fL (80-100); MPV 7.7 fL (7.6-11.3); Platelets 205 thou/uL (152-406); RBC Red Blood Cell Count 5.25 M/uL (4.33-5.43)
[2023-02-18 13:14] LABS: Protime INR 0.96
--- NOTE | 2023-02-18 13:30 | RAD REPORT ---
EXAM DESCRIPTION: RAD - Chest Single View - 02/18/2023 1:13 pm CLINICAL HISTORY: CHEST PAIN Chest pain. COMPARISON: No comparisons FINDINGS: Portable technique limits examination quality. The lungs are grossly clear. The heart is normal in size. No displaced fractures. IMPRESSION: No acute intrathoracic process suspected.
[2023-02-18 14:05] LABS: Albumin 3.6 g/dL (3.4-5.0); Bilirubin Direct 0.1 mg/dL (0-0.2); Bilirubin Indirect, Calculated 0.3 mg/dL (0.2-0.8); Bilirubin Total 0.4 mg/dL (0.2-1.0); Magnesium 2.1 mg/dL (1.6-2.4); Potassium 3.7 mEq/L (3.5-5.1); Protein, Total 6.6 g/dL (6.4-8.2); Troponin High Sensitivity 8.2 pg/mL (<58.9)
--- NOTE | 2023-02-18 14:13 | EDPHYS ---
Physician Documentation [facility] Name: Bhargav Ruiz Age: 67 yrs Sex: Male : 1955 Arrival Date: 02/18/2023 Time: 12:24 Bed 13 Private MD: ED Physician Brett Arce HPI: 02/18 12:30 This 67 yrs old Male presents to ER via Wheelchair with complaints of Chest Pain, Chest jh7 soreness. 12:30 Onset: The symptoms/episode began/occurred 2 day(s) ago, and became worse today. jh7 Associated signs and symptoms: Pertinent positives: chest pain, shortness of breath, Pertinent negatives: congestion, cough, fever, vomiting, wheezing. 67-year-old male presents to the ER for left-sided chest pain. He reports that 2 nights ago he developed chest pain, took 1 nitroglycerin, and felt relieved. Reports that he was also experiencing burping and indigestion at the time which GI meds did not resolve. Reports that today the chest pain returned and that now it is sore to the touch. History of hypertension and stable angina. His PCP is Dr. Norris and his carpenter mate is Dr. Ford.. Historical: - Allergies: 12:45 No Known Allergies; nj1 - PMHx: 12:45 Asthma; diabetes mellitus; Hypercholesterolemia; Hypothyroidism; nj1 - PSHx: 12:45 foot; hernia; knee; Shoulder; nj1 - Immunization history:: Client reports receiving the 2nd dose of the Covid vaccine. - Social history:: Smoking status: Patient denies any tobacco usage or history of. Patient uses street drugs, marijuana. ROS: 12:30 Constitutional: Negative for fever, chills, and weight loss, Eyes: Negative for injury, jh7 pain, redness, and discharge, Neck: Negative for injury, pain, and swelling, Respiratory: Negative for shortness of breath, cough, wheezing, and pleuritic chest pain, Abdomen/GI: Negative for abdominal pain, nausea, vomiting, diarrhea, and constipation, Back: Negative for injury and pain, MS/Extremity: Negative for injury and deformity, Skin: Negative for injury, rash, and discoloration, Neuro: Negative for headache, weakness, numbness, tingling, and seizure, 12:30 Cardiovascular: Positive for chest pain, Negative for palpitations, 12:30 All other systems are negative, Exam: 12:30 Constitutional: This is a well developed, well nourished patient who is awake, alert, jh7 and in no acute distress. Head/Face: Normocephalic, atraumatic. Eyes: Pupils equal round and reactive to light, extra-ocular motions intact. Lids and lashes normal. Conjunctiva and sclera are non-icteric and not injected. Cornea within normal limits. Periorbital areas with no swelling, redness, or edema. Neck: Trachea midline, no thyromegaly or masses palpated, and no cervical lymphadenopathy. Supple, full range of motion without nuchal rigidity, or vertebral point tenderness. No Meningismus. Cardiovascular: Regular rate and rhythm with a normal S1 and S2. No gallops, murmurs, or rubs. Normal PMI, no JVD. No pulse deficits. Respiratory: Lungs have equal breath sounds bilaterally, clear to auscultation and percussion. No rales, rhonchi or wheezes noted. No increased work of breathing, no retractions or nasal flaring. Abdomen/GI: Soft, non-tender, with normal bowel sounds. No distension or tympany. No guarding or rebound. No evidence of tenderness throughout. Skin: Warm, dry with normal turgor. Normal color with no rashes, no lesions, and no evidence of cellulitis. MS/ Extremity: Pulses equal, no cyanosis. Neurovascular intact. Full, normal range of motion. Neuro: Awake and alert, GCS 15, oriented to person, place, time, and situation. Motor strength 5/5 in all extremities. Sensory grossly intact. Normal gait. 12:30 Chest/axilla: Palpation: tenderness, that is mild, of the left breast, that partially reproduces the patient's complaints, Vital Signs: 12:30 BP 137 / 102; Pulse 76; Resp 18; Temp 98.3; Pulse Ox 97% ; Weight 104.33 kg; Height 5 nj1 ft. 9 in. ; Pain 8/10; 12:57 BP 116 / 70; Pulse 77; Resp 16; Pulse Ox 94% on R/A; me1 13:15 BP 106 / 78; Pulse 72; Resp 16; Pulse Ox 95% on R/A; me1 13:44 BP 112 / 71; Pulse 75; Resp 16; Pulse Ox 90% on R/A; me1 13:45 BP 102 / 71; Pulse 73; Resp 16; Pulse Ox 96% on R/A; me1 14:15 BP 97 / 66; Pulse 63; Resp 15; Pulse Ox 98% on 2 lpm NC; me1 14:45 BP 102 / 66; Pulse 62; Resp 15; Pulse Ox 99% on 2 lpm NC; me1 15:15 BP 111 / 68; Pulse 63; Resp 14; Pulse Ox 98% on 2 lpm NC; me1 15:15 BP 107 / 70; Pulse 63; Resp 15; Pulse Ox 97% on 2 lpm NC; me1 12:30 Body Mass Index 33.96 (104.33 kg, 175.26 cm) hi1 12:30 Pain Scale: Adult nj1 MDM: 12:29 Patient medically screened. [facility] 14:10 Differential diagnosis: pneumonia Acute NV, stable angina, unstable angina, non-STEMI, 7 costochondritis. Data reviewed: vital signs, nurses notes, lab test result(s), EKG, radiologic studies, plain films. Consideration of Admission/Observation Patient was admitted/placed on observation. Management of patient was discussed with the following: Hospitalist: JULIA Waller for Dr. French. I considered the following discharge prescriptions or medication management in the emergency department Medications were administered in the Emergency Department. See MAR. Independent interpretation of the following test(s) in the Emergency Department EKG: See my EKG interpretation above. Counseling: I had a detailed discussion with the patient and/or guardian regarding the historical points, exam findings, and any diagnostic results supporting the discharge/admit diagnosis, the need for further work-up and treatment in the hospital. Response to treatment: the patient's symptoms have mildly improved after treatment. 02/18 12:44 Order name: Basic Metabolic Panel; Complete Time: 14: [facility] 02/18 12:44 Order name: CBC with Diff; Complete Time: 13: [facility] 02/18 12:44 Order name: LFT's; Complete Time: 14: [facility] 02/18 12:44 Order name: Magnesium; Complete Time: 14: [facility] 02/18 12:44 Order name: NT PRO-BNP; Complete Time: 14: [facility] 02/18 12:44 Order name: PT-INR; Complete Time: 13:31 [facility] 02/18 12:44 Order name: Troponin HS; Complete Time: 14:06 [facility] 02/18 15:06 Order name: Basic Metabolic Panel EDMS 02/18 15:06 Order name: Basic Metabolic Panel EDMS 02/18 15:06 Order name: CBC with Automated Diff EDMS 02/18 15:06 Order name: CBC with Automated Diff EDMS 02/18 15:06 Order name: Magnesium EDMS 02/18 15:06 Order name: Magnesium EDMS 02/18 15:06 Order name: Phosphorus EDMS 02/18 15:06 Order name: Phosphorus EDMS 02/18 15:06 Order name: Troponin High Sensitivity EDMS 02/18 12:44 Order name: XRAY Chest (1 view); Complete Time: 13:31 [facility] 02/18 12:44 Order name: EKG; Complete Time: 12:45 [facility] 02/18 12:44 Order name: Cardiac monitoring; Complete Time: 12:57 [facility] 02/18 12:44 Order name: EKG - Nurse/Tech; Complete Time: 12:57 [facility] 02/18 12:44 Order name: IV Saline Lock; Complete Time: 12:57 [facility] 02/18 12:44 Order name: Labs collected and sent; Complete Time: 12:57 [facility] 02/18 12:44 Order name: O2 Per Protocol; Complete Time: 13:02 [facility] 02/18 12:44 Order name: O2 Sat Monitoring; Complete Time: 13:02 [facility] EC:41 Rate is 73 beats/min. Rhythm is regular. QRS [place] is Normal. SC interval is normal at 7 150 msec. QRS interval is normal at 98 msec. QT interval is normal at 400 msec. No Q waves. T waves are Normal. No ST changes noted. Clinical impression: Normal ECG. Administered Medications: 13:01 Drug: Aspirin PO Chewable Tablet 324 mg PO once; 81 mg tablets x 4 Route: PO; me1 13:45 Follow up: Response: No adverse reaction me1 13:01 Drug: Nitroglycerin Sublingual 0.4 mg Sublingual once Route: Sublingual; me1 13:44 Follow up: BP 112 / 71; Pulse 75 bpm; Resp 16 bpm; Pulse Ox 90% RA me1 13:45 Follow up: Response: No adverse reaction; Pain is decreased me1 13:40 Drug: Nitroglycerin Sublingual 0.4 mg Sublingual once Route: Sublingual; [facility] 13:50 Follow up: Response: No adverse reaction; Pain is unchanged, physician notified me1 Disposition: 16:20 Co-signature as Attending Physician, Brett Arce MD I reviewed the patient's care rn provided by the Advanced Practice Provider and agree with the diagnosis and treatment plan. Disposition Summary: 02/18/23 14:12 Hospitalization Ordered Notes: Hospitalization Status: Observation [facility] Provider: Manish French [facility] Location: Telemetry/MedSur (Inpatient) [facility] Condition: Stable [facility] Problem: new [facility] Symptoms: have improved [facility] Bed/Room Type: Standard [facility] Room Assignment: 230(02/18/23 15:12) eb Diagnosis - Chest pain, unspecified [facility] Forms: - Medication Reconciliation Form [facility] - SBAR form [facility] - Leadership Thank You Letter [facility] Signatures: Dispatcher [employer] EDBrett Zhu MD MD rn Botello, Elizabeth eb Hadash, Jennifer, FNP [facility] HE[employer]IT[employer] Cassy Valdes RN RN nj1 Corinne Herbert RN RN me1 Corrections: (The following items were deleted from the chart) 15:12 14:12 [facility]
--- NOTE | 2023-02-18 14:13 | ER ---
Nurse's Notes [facility] Name: Bhargav Ruiz Age: 67 yrs Sex: Male : 1955 Arrival Date: 02/18/2023 Time: 12:24 Bed 13 Private MD: Diagnosis: Chest pain, unspecified Presentation: 02/18 12:30 Chief complaint: Patient states: Chest pain. Left sided 2 days ago, took nitro and went me1 away, now it is just sore, but he is also complaining of right sided chest pain that started today. 12:30 Coronavirus screen: Vaccine status: Patient reports receiving the 2nd dose of the covid nj1 vaccine. Ebola Screen: Patient denies travel to an Ebola-affected area in the 21 days before illness onset. Initial Sepsis Screen: Does the patient meet any 2 criteria? No. Patient's initial sepsis screen is negative. Does the patient have a suspected source of infection? No. Patient's initial sepsis screen is negative. Risk Assessment: Do you want to hurt yourself or someone else? Patient reports no desire to harm self or others. Onset of symptoms was February 16, 2023. 12:30 Method Of Arrival: Wheelchair nj1 12:30 Acuity: RENARD 3 nj1 Historical: - Allergies: 12:45 No Known Allergies; nj1 - PMHx: 12:45 Asthma; diabetes mellitus; Hypercholesterolemia; Hypothyroidism; nj1 - PSHx: 12:45 foot; hernia; knee; Shoulder; nj1 - Immunization history:: Client reports receiving the 2nd dose of the Covid vaccine. - Social history:: Smoking status: Patient denies any tobacco usage or history of. Patient uses street drugs, marijuana. Screenin:40 [facility] ED Fall Risk Assessment (Adult) History of falling in the last 3 months, me1 including since admission No falls in past 3 months (0 pts) Confusion or Disorientation No (0 pts) Intoxicated or Sedated No (0 pts) Impaired Gait No (0 pts) Mobility Assist Device Used No (0 pt) Altered Elimination No (0 pt) Score/Fall Risk Level 0 - 2 = Low Risk. Abuse screen: Denies threats or abuse. Nutritional screening: No deficits noted. Tuberculosis screening: No symptoms or risk factors identified. Assessment: 12:40 General: Appears uncomfortable, well groomed, well developed, well nourished, Behavior me1 is calm, cooperative, appropriate for age, Reports Chest pain. Left sided 2 days ago, took nitro and went away, now it is just sore, but he is also complaining of right sided chest pain that started today. Pain: Complains of pain in right chest Pain does not radiate. Pain currently is 8 out of 10 on a pain scale. Quality of pain is described as dull, Pain began suddenly, 2 hours ago. Is continuous. Neuro: Level of Consciousness is awake, alert, obeys commands, Oriented to person, place, time, situation, Appropriate for age Reports headache. Cardiovascular: Capillary refill < 3 seconds Patient's skin is warm and dry. Respiratory: Airway is patent Respiratory effort is even, unlabored, Respiratory pattern is regular, symmetrical. Vital Signs: 12:30 BP 137 / 102; Pulse 76; Resp 18; Temp 98.3; Pulse Ox 97% ; Weight 104.33 kg; Height 5 nj1 ft. 9 in. ; Pain 8/10; 12:57 BP 116 / 70; Pulse 77; Resp 16; Pulse Ox 94% on R/A; me1 13:15 BP 106 / 78; Pulse 72; Resp 16; Pulse Ox 95% on R/A; me1 13:44 BP 112 / 71; Pulse 75; Resp 16; Pulse Ox 90% on R/A; me1 13:45 BP 102 / 71; Pulse 73; Resp 16; Pulse Ox 96% on R/A; me1 14:15 BP 97 / 66; Pulse 63; Resp 15; Pulse Ox 98% on 2 lpm NC; me1 14:45 BP 102 / 66; Pulse 62; Resp 15; Pulse Ox 99% on 2 lpm NC; me1 15:15 BP 111 / 68; Pulse 63; Resp 14; Pulse Ox 98% on 2 lpm NC; me1 15:15 BP 107 / 70; Pulse 63; Resp 15; Pulse Ox 97% on 2 lpm NC; me1 12:30 Body Mass Index 33.96 (104.33 kg, 175.26 cm) [facility] 12:30 Pain Scale: Adult [facility] ED Course: 12:28 Patient arrived in ED. mr 12:29 Zainab Bassett FNP [facility] 12:29 Brett Arce MD is Attending Physician. jh7 12:40 Patient has correct armband on for positive identification. Bed in low position. Call me1 light in reach. Side rails up X 1. Provided Education on: POC. Verbalized understanding.. Client placed on continuous cardiac and pulse oximetry monitoring. NIBP monitoring applied. environmental monitoring specialist on. 12:40 No provider procedures requiring assistance completed. Flushed right antecubital. me1 Oxygen administration via nasal cannula \T\ 2L/min. 12:43 Corinne Herbert, JEREMIE is Primary Nurse. me1 12:45 Triage completed. nj1 12:46 Arm band placed on right wrist. nj1 12:57 Inserted saline lock: 20 gauge in right antecubital area, using aseptic technique. aw1 12:57 Initial lab(s) drawn, by me, sent to lab. aw1 13:15 XRAY Chest (1 view) In Process Unspecified. [facility] 14:12 Manish French MD is Hospitalizing Provider. jh7 15:56 Patient admitted, IV remains in place. me1 Administered Medications: 13:01 Drug: Aspirin PO Chewable Tablet 324 mg PO once; 81 mg tablets x 4 Route: PO; me1 13:45 Follow up: Response: No adverse reaction me1 13:01 Drug: Nitroglycerin Sublingual 0.4 mg Sublingual once Route: Sublingual; me1 13:44 Follow up: BP 112 / 71; Pulse 75 bpm; Resp 16 bpm; Pulse Ox 90% RA me1 13:45 Follow up: Response: No adverse reaction; Pain is decreased me1 13:40 Drug: Nitroglycerin Sublingual 0.4 mg Sublingual once Route: Sublingual; me1 13:50 Follow up: Response: No adverse reaction; Pain is unchanged, physician notified me1 Medication: 12:40 VIS not applicable for this client. me1 Outcome: 12:40 Instructed on the need for admit, me1 14:12 Decision to Hospitalize by Provider. jh7 15:45 Admitted to [facility] 15:47 Admitted to Med/surg accompanied by tech, via wheelchair, room 230, with chart, Report me1 called to JEREMIE Zhang 15:47 Condition: stable 16:18 Patient left the ED. me1 Signatures: Dispatcher [employer] EDID Alexsandra Ashraf, Reg Reg mr Zainab Bassett, CLASSROOM MONITOR CLASSROOM MONITOR 7 Cassy Valdes, RN RN nj1 Devi Mariano aw1 Corinne Herbert, JEREMIE RN me1 Corrections: (The following items were deleted from the chart) 15:50 12:30 Chief complaint: Patient states: Chest pain. Left sided 2 days ago, took nitro me1 and went away, now it is just sore, but he is also complaining of right sided chest pain that started today. nj1
--- NOTE | 2023-02-18 14:22 | EKG ---
Test Date: 2023-02-18 Test Time: 12:41:11 [employer] Clerk: TRAVIS MEASUREMENT RESULTS: Intervals: Rate: 73 TN: 150 QRSD: 98 QT: 400 QTc: 440 [place]: P: 62 TN: 150 QRS: 50 T: 76 INTERPRETIVE STATEMENTS: Normal sinus rhythm Normal ECG No previous ECG available for comparison Electronically Signed On 02-18-23 14:21:45 COMPLIANCE AIDE by Dandy Arenas
[2023-02-18] MEDS ORDERED: ACETAMINOPHEN 500 MG TAB PO PRN (15:00)
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
[2023-02-18 19:39] VITALS: BMI 34.0
[2023-02-18] MEDS: METHYLPREDNISOLONE 125 MG INJ IV SCH (21:00)
[2023-02-18] MEDS ORDERED: ATORVASTATIN 40 MG TAB PO SCH (21:00)
[2023-02-19 04:00] LABS: Absolute Lymphocytes (CBC) 2.4 K/uL (0.7-4.9); Hematocrit 42.4 % (39.6-49.0); Lymphocytes % 35.4 % (15.3-44.8); Platelets 194 thou/uL (152-406); RBC Red Blood Cell Count 5.17 M/uL (4.33-5.43)
[2023-02-19 04:27] LABS: BUN Blood Urea Nitrogen 23 mg/dL (7-18); Bicarbonate 24 mEq/L (21-32); Glomerular Filtration Rate 66 ml/min (=/>90); Glucose Level 137 mg/dL (74-106); HDL Cholesterol 29 mg/dL (40-60); Magnesium 2.2 mg/dL (1.6-2.4); Phosphorus 3.8 mg/dL (2.5-4.9); Potassium 3.8 mEq/L (3.5-5.1); Sodium Level 143 mEq/L (136-145); Thyroid Stimulating Hormone 0.706 uIU/mL (0.358-3.740)
[2023-02-19 04:42] LABS: LDL, Direct 33 mg/dL (100-129)
[2023-02-19 08:23] VITALS: BP 126/78; TEMP 97
[2023-02-19] MEDS: METHYLPREDNISOLONE 125 MG INJ IV SCH (08:32)
[2023-02-19 09:28] VITALS: O2SAT 95
[2023-02-19] MEDS ORDERED: METHYLPREDNISOLONE 125 MG INJ IV SCH (20:00)
== END 2023-02-19 11:35 | disposition home or self-care (01) ==
LOC: ER 12:24 → ERHOLD 15:13 → 2ND 15:50
PROVIDERS: ADMIT Hospitalist; ATTEND Hospitalist
DX: R07.9 Chest pain, unspecified (principal); J45.909 Unspecified asthma, uncomplicated; E11.9 Type 2 diabetes mellitus without complications; E78.00 Pure hypercholesterolemia, unspecified; E03.9 Hypothyroidism, unspecified; G25.81 Restless legs syndrome; N17.9 Acute kidney failure, unspecified
CPT/HCPCS: 93005; 85025 ×2; 80048 ×2; 36415; 83721; 83735 ×2; 84100; 85610; 80061; 80076; 84443; 83036; 84484 ×3; 84439; 83880; 71045; 99285; J2930; G0378 ×3

== ENCOUNTER 2023-09-19 07:25 | Emergency (ER) | payer MEDICARE ==
[2023-09-19 08:09] LABS: Absolute Eosinophils 0.2 K/uL (0-0.5); Absolute Lymphocytes (CBC) 1.8 K/uL (0.7-4.9); Absolute Monocytes 0.6 K/uL (0.1-1.3); Basophils % 0.5 % (0-1.3); Hematocrit 43.9 % (39.6-49.0); Hemoglobin 14.1 g/dL (13.6-17.9); Lymphocytes % 23.7 % (15.3-44.8); MCH 26.3 pg (27.0-35.0); MCHC 32.2 g/dL (32.0-36.0); MCV 81.7 fL (80-100); Monocytes % 8.2 % (3.3-12.3); Neutrophils % 65.6 % (41.7-73.7); Platelets 230 thou/uL (152-406); RBC Red Blood Cell Count 5.38 M/uL (4.33-5.43); Red Cell Distribution Width 14.2 % (12.1-15.2)
[2023-09-19] MEDS ORDERED: HYDROCODONE/APAP 5/325 MG TAB ONE (08:13)
[2023-09-19 08:16] LABS: PT Prothrombin Time 11.4 SECONDS (9.5-12.5); PTT, Activated Partial Thromb 29.8 SECONDS (24.3-36.9); Protime INR 1.04
[2023-09-19 08:19] LABS: Anion Gap 7.8 mEq/L (5.0-15.0); Potassium 3.8 mEq/L (3.5-5.1)
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
[2023-09-19] MEDS ORDERED: NA CHLORIDE 0.9% 500 ML ONE (08:27)
--- NOTE | 2023-09-19 09:18 | RAD REPORT ---
EXAM DESCRIPTION: RAD - Shoulder Left 2 View - 09/19/2023 9:13 am CLINICAL HISTORY: PAIN COMPARISON: No comparisons FINDINGS: No acute fracture or dislocation seen.
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
[2023-09-19 10:22] VITALS: BP 129/87; TEMP 97.8; O2SAT 95
== END 2023-09-19 09:56 | disposition home or self-care (01) ==
LOC: ER 07:25
DX: S10.83XA Contusion of other specified part of neck, initial encounter (principal); S09.90XA Unspecified injury of head, initial encounter; R51.9 Headache, unspecified
CPT/HCPCS: 85025; 80048; 36415; 85610; 85730; 70450; 71250; 72125; 73030; J7040; 96360; 99284

== ENCOUNTER 2024-05-28 15:55 | Emergency (ER) | payer MEDICARE, OTHER ==
--- NOTE | 2024-05-28 17:09 | RAD REPORT ---
EXAMINATION: CT ABDOMEN AND PELVIS WITHOUT CONTRAST-Stone protocol CLINICAL INDICATION: Male, 69 years old.kidney stone TECHNIQUE: CT abdomen and pelvis was performed with stone protocol, without IV contrast, [facility]. Axial, sagittal and coronal reconstructions were obtained. One or more of the following dose reduction techniques were used: Automated exposure control, adjustment of the mA and/o r kV according to the patient size, and/or iterative reconstruction. Unless otherwise specified, incidental findings do not require dedicated imaging follow-up. [id number]. IV CONTRAST: Not administered. COMPARISON: 07/20/2022 FINDINGS: The lack of intravenous contrast limits the sensitivity of this exam for evaluation of solid visceral organs, vascular structures, and retroperitoneum. LOWER CHEST: No acute process identified.No significant pericardial effusion. UPPER GI: No significant abnormality. LIVER: Hepatic steatosis, but otherwise unremarkable. GALLBLADDER/BILE DUCTS: No biliary ductal dilatation.? PANCREAS: Atrophy, but otherwise unremarkable. SPLEEN: Unremarkable. ADRENALS: No adrenal masses. KIDNEYS AND URETERS: No hydronephrosis.Low density and/or too small to characterize renal lesions whi ch are statistically benign.Nonobstructing stones in the right kidney. ABDOMINAL AORTA AND OTHER VESSELS: Mild atherosclerotic changes. PERITONEUM: No abnormal free fluid. No free air. LYMPH NODES: No pathologic lymphadenopathy. ABDOMINAL WALL: Prior left renal hernia repair. SMALL BOWEL/COLON: Small bowel has normal course and caliber. No colonic wall thickening or pericolon ic inflammatory changes.Normal appendix. Mild diverticulosis without diverticulitis URINARY BLADDER: Underdistended but grossly unremarkable. REPRODUCTIVE ORGANS: No pathologic process. MUSCULOSKELETAL: Grade 2 anterolisthesis of L5 on S1. Scattered degenerative changes are present in t he spine. ADDITIONAL FINDINGS: None. IMPRESSION: No acute or significant abnormalities in the abdomen or pelvis, with evaluation limited by lack of IV contrast. Nonobstructive right nephrolithiasis.
[2024-05-28 20:12] LABS: Absolute Basophils 0.1 K/uL (0-0.5); Absolute Eosinophils 0.1 K/uL (0-0.5); Absolute Lymphocytes (CBC) 2.2 K/uL (0.7-4.9); Absolute Monocytes 0.7 K/uL (0.1-1.3); Absolute Neutrophil 6.9 K/uL (1.8-8.0); Eosinophils % 0.9 % (0-4.4); Hematocrit 42.7 % (39.6-49.0); Lymphocytes % 21.9 % (15.3-44.8); MCH 26.8 pg (27.0-35.0); MCHC 32.9 g/dL (32.0-36.0); MCV 81.6 fL (80-100); MPV 7.8 fL (7.6-11.3); Monocytes % 7.4 % (3.3-12.3); Neutrophils % 68.8 % (41.7-73.7); Nucleated Red Blood Cells % 0.1 % (0-0); Platelets 196 thou/uL (152-406); RBC Red Blood Cell Count 5.23 M/uL (4.33-5.43); Red Cell Distribution Width 14.8 % (12.1-15.2)
[2024-05-28] MEDS ORDERED: KETOROLAC 30 MG/ML INJ ONE (20:19)
[2024-05-28 20:38] LABS: Albumin 3.7 g/dL (3.4-5.0); Albumin/Globulin Ratio 1.3 (1.1-1.8); Anion Gap 7.7 mEq/L (5.0-15.0); Bilirubin Total 0.5 mg/dL (0.2-1.0); Globulin 2.9 g/dL (2.3-3.5); Potassium 3.7 mEq/L (3.5-5.1); Protein, Total 6.6 g/dL (6.4-8.2)
[2024-05-28 20:50] LABS: Specific Gravity 1.021 (1.005-1.030); Urine Bilirubin NEGATIVE (Negative); Urine Blood Negative (Negative); Urine Clarity Clear (Clear); Urine Color Light-Yellow (Yellow); Urine Glucose NEGATIVE (Negative); Urine Ketones NEGATIVE (Negative); Urine Microscopic Reflex YN NO UMIC; Urine Nitrite NEGATIVE (Negative); Urine Protein NEGATIVE (Negative); Urine Urobilinogen Normal (Normal); Urine pH 7.5 (5.0-7.0)
--- NOTE | 2024-05-28 21:12 | ER ---
Nurse's Notes [facility] Name: Bhargav Ruiz Age: 69 yrs Sex: Male : 1955 Arrival Date: 05/28/2024 Time: 15:55 Bed 25 Private MD: Diagnosis: Flank Pain Presentation: 05/28 16:50 Chief complaint: Patient states: he has been having right sided pain for approx 2 ap3 weeks. patient currently rates his pain as a 9/10 on the pain scale. Coronavirus screen: At this time, the client does not indicate any symptoms associated with coronavirus-19. Ebola Screen: No symptoms or risks identified at this time. 16:50 Method Of Arrival: Wheelchair ap3 16:53 Initial Sepsis Screen: Does the patient meet any 2 criteria? No. Patient's initial ap3 sepsis screen is negative. Does the patient have a suspected source of infection? No. Patient's initial sepsis screen is negative. Risk Assessment: Do you want to hurt yourself or someone else? Patient reports no desire to harm self or others. Onset of symptoms is unknown. 16:53 Acuity: RENARD 3 ap3 Triage Assessment: 16:52 General: Appears uncomfortable, Behavior is calm, cooperative, appropriate for age. ap3 Pain: Complains of pain in anterior aspect of right lateral abdomen and posterior aspect of right lateral abdomen Pain currently is 9 out of 10 on a pain scale. Neuro: Level of Consciousness is awake, alert, obeys commands, Oriented to person, place, time, situation, Appropriate for age. Cardiovascular: Patient's skin is warm and dry. Respiratory: Airway is patent Respiratory effort is even, unlabored, Respiratory pattern is regular, symmetrical. GI:. : Reports pain in right flank(s). Historical: - Allergies: 16:50 No Known Allergies; ap3 - PMHx: 16:50 Asthma; diabetes mellitus; Headaches; Hypercholesterolemia; Hypothyroidism; ap3 prediabetes; TIA; vasovagal syncope; West Nile Virus; - PSHx: 16:50 Samuel feet (bunion); SAMUEL knees; foot; hernia; Right Bicep; right shoulder; ap3 - Immunization history:: Adult Immunizations up to date. - Infectious Disease History:: Denies. - Social history:: Smoking status: Patient reports use of chewing tobacco. Screenin:53 [facility] ED Fall Risk Assessment (Adult) History of falling in the last 3 months, ap3 including since admission No falls in past 3 months (0 pts) Confusion or Disorientation No (0 pts) Intoxicated or Sedated No (0 pts) Impaired Gait No (0 pts) Mobility Assist Device Used No (0 pt) Altered Elimination No (0 pt) Score/Fall Risk Level 0 - 2 = Low Risk Oriented to surroundings, Maintained a safe environment, Educated pt \T\ family on fall prevention, incl call for assistance when getting out of bed, Assessed \T\ reinforced patient's understanding of fall precautions, Hourly rounding (assess needs \T\ fall precautionary measures) done, Used ambulatory aids as needed (educated on \T\ assisted with). Abuse screen: Denies threats or abuse. Nutritional screening: No deficits noted. Tuberculosis screening: No symptoms or risk factors identified. Assessment: 20:29 General: Appears in no apparent distress. comfortable, Behavior is calm, cooperative, jb4 appropriate for age. Pain: Complains of pain in low back area Pain does not radiate. Pain currently is 9 out of 10 on a pain scale. Neuro: Level of Consciousness is awake, alert, obeys commands, Oriented to place, time. Respiratory: Airway is patent Respiratory effort is even, unlabored, Respiratory pattern is regular, symmetrical. : Reports pain in right flank(s). Derm: Skin is intact, Skin is pink, warm \T\ dry. Musculoskeletal: Circulation, motion, and sensation intact. Range of motion:. 21:45 Reassessment: Patient appears in no apparent distress at this time. Patient and/or jb4 family updated on plan of care and expected duration. Pain level reassessed. Patient is alert, oriented x 3, equal unlabored respirations, skin warm/dry/pink. Vital Signs: 16:53 Pulse 82; Resp 18; Temp 98.4; Pulse Ox 100% ; Weight 98.88 kg; Height 5 ft. 9 in. ; ap3 Pain 9/10; 16:55 BP 149 / 94; ap3 20:30 BP 141 / 85; Pulse 71; Resp 16; Pulse Ox 95% on R/A; jb4 21:15 BP 138 / 93; Pulse 66; Resp 16; Pulse Ox 98% on R/A; jb4 16:53 Body Mass Index 32.19 (98.88 kg, 175.26 cm) ap3 16:53 Pain Scale: Adult ap3 ED Course: 15:56 Patient arrived in ED. as 16:12 Abelino Toribio DO is Attending Physician. ms3 16:47 Stone Protocol In Process Unspecified. EDMS 16:54 Triage completed. ap3 16:55 Arm band placed on right wrist. ap3 18:55 Attending Physician role handed off by Abelino Toribio DO ec2 18:55 Beltran Deluca MD is Attending Physician. ec2 20:42 Attending Physician role handed off by Beltran Deluca MD sp3 20:42 Jacinta Fortune MD is Attending Physician. sp3 21:15 Patient has correct armband on for positive identification. Bed in low position. Call jb4 light in reach. Side rails up X 1. Provided Education on: discharge instructions. 21:15 No provider procedures requiring assistance completed. IV discontinued, intact, jb4 bleeding controlled, No redness/swelling at site. Pressure dressing applied. Administered Medications: 20:24 Drug: TORadol - Ketorolac IVP 15 mg IVP once Route: IVP; Site: right antecubital; jb4 21:00 Follow up: Response: No adverse reaction; Marked relief of symptoms jb4 Medication: 21:15 VIS not applicable for this client. jb4 Outcome: 21:11 Discharge ordered by . sp3 21:15 Discharged to home ambulatory, jb4 21:15 Condition: stable 21:15 Discharge instructions given to patient, Instructed on discharge instructions, follow up and referral plans. no drinking with medication, no driving heavy equipment, medication usage, Demonstrated understanding of instructions, follow-up care, medications, Prescriptions given X 2, 21:38 Patient left the ED. jb4 Signatures: Dispatcher [employer] Melvi Puri James, RN RN jb4 Paulina Cameron RN RN ap3 Abelino Toribio DO DO ms3 Jacinta Fortune MD MD sp3 Beltran Deluca MD MD ec2 Corrections: (The following items were deleted from the chart) 20:31 20:29 : Reports jb4 jb4 21:52 21:52 Reassessment: Patient appears in no apparent distress at this time. Patient jb4 and/or family updated on plan of care and expected duration. Pain level reassessed. Patient is alert, oriented x 3, equal unlabored respirations, skin warm/dry/pink. jb4
--- NOTE | 2024-05-28 21:12 | EDPHYS ---
Physician Documentation [facility] Name: Bhargav Ruiz Age: 69 yrs Sex: Male : 1955 Arrival Date: 05/28/2024 Time: 15:55 Bed 25 Private MD: ED Physician Jacinta Fortune HPI: 05/28 18:23 This 69 yrs old Male presents to ER via Wheelchair with complaints of Possible Kidney ms3 Stone. 18:23 69-year-old male with past medical history of asthma, diabetes, headache, ms3 hypercholesterolemia, hypothyroidism, prediabetes presents to the emergency department for right flank pain that is been ongoing for 2 weeks. Patient states pain is a 9/10. He denies any alleviating or inciting factors. Patient states he took Tylenol and ibuprofen at night that allowed him to sleep for a few hours.. Historical: - Allergies: 16:50 No Known Allergies; ap3 - PMHx: 16:50 Asthma; diabetes mellitus; Headaches; Hypercholesterolemia; Hypothyroidism; ap3 prediabetes; TIA; vasovagal syncope; West Nile Virus; - PSHx: 16:50 Samuel feet (bunion); SAMUEL knees; foot; hernia; Right Bicep; right shoulder; ap3 - Immunization history:: Adult Immunizations up to date. - Infectious Disease History:: Denies. - Social history:: Smoking status: Patient reports use of chewing tobacco. ROS: 18:23 Constitutional: Negative for fever, and chills. Cardiovascular: Negative for chest ms3 pain, and palpitations. Respiratory: Negative for shortness of breath, cough, wheezing, and pleuritic chest pain, 18:23 MS/Extremity: Negative for injury and deformity, 18:23 Back: Positive for flank pain, on the right, Exam: 18:23 Constitutional: This is a well developed, well nourished patient who is awake, alert, ms3 and in no acute distress. Cardiovascular: Regular rate and rhythm with a normal S1 and S2. No gallops, murmurs, or rubs. Normal PMI, no JVD. No pulse deficits. Respiratory: Lungs have equal breath sounds bilaterally, clear to auscultation and percussion. No rales, rhonchi or wheezes noted. No increased work of breathing, no retractions or nasal flaring. Abdomen/GI: Soft, non-tender, with normal bowel sounds. No distension or tympany. No guarding or rebound. No evidence of tenderness throughout. Back: No spinal tenderness. No costovertebral tenderness. Full range of motion. Skin: Warm, dry with normal turgor. Normal color with no rashes, no lesions, and no evidence of cellulitis. Vital Signs: 16:53 Pulse 82; Resp 18; Temp 98.4; Pulse Ox 100% ; Weight 98.88 kg; Height 5 ft. 9 in. ; ap3 Pain 9/10; 16:55 BP 149 / 94; ap3 20:30 BP 141 / 85; Pulse 71; Resp 16; Pulse Ox 95% on R/A; jb4 21:15 BP 138 / 93; Pulse 66; Resp 16; Pulse Ox 98% on R/A; jb4 16:53 Body Mass Index 32.19 (98.88 kg, 175.26 cm) ap3 16:53 Pain Scale: Adult ap3 MDM: 16:56 Medical Screening Exam initiated ms3 18:23 Differential diagnosis: non-specific abd pain, Pyelonephritis, urinary tract infection, ms3 Kidney stone. 18:48 Transition of care: After a detail discussion of the patient's case, care is ms3 transferred to Beltran Deluca MD. 18:59 Data reviewed: vital signs, nurses notes. ED course: Patient signed out through a ec2 previous physician, in brief arrives today for flank pain. CT of the abdomen pelvis shows no acute intra-abdominal process. Plan to follow-up lab work and reassess.. 20:57 ED course: Patient signed out to me by Dr. Deluca and was previously seen by Dr. Toribio. sp3 69-year-old male with history of kidney stone presented with flank pain. Full workup was negative including UA, labs and CT scan. Will reassess pain level and reassure patient and share results. Patient can follow-up with his PCP as needed. Patient still having pain and on my exam he has pain to palpation of the right side just above the pelvic crest. Pain is evident on palpation worse with movement. I believe chances are he has a musculoskeletal issue. We will send him home on diclofenac and Flexeril and again he will follow-up with his PCP.. 05/28 16:13 Order name: CBC with Diff; Complete Time: 20:25 ms3 02/24 16:13 Order name: CMP; Complete Time: 20:39 ms3 05/28 16:13 Order name: Urinalysis w/ reflexes; Complete Time: 20:57 ms3 05/28 16:36 Order name: Stone Protocol; Complete Time: 17:26 EDMS 05/28 16:13 Order name: IV Saline Lock; Complete Time: 20:18 ms3 05/28 16:13 Order name: Labs collected and sent; Complete Time: 20:18 ms3 Administered Medications: 20:24 Drug: TORadol - Ketorolac IVP 15 mg IVP once Route: IVP; Site: right antecubital; jb4 21:00 Follow up: Response: No adverse reaction; Marked relief of symptoms jb4 Disposition Summary: 05/28/24 21:11 Discharge Ordered Notes: Location: Home sp3 Condition: Stable sp3 Diagnosis - Flank Pain sp3 Followup: ec2 - With: Private Physician - When: - Reason: Re-evaluation by your physician Discharge Instructions: - Discharge Summary Sheet ec2 - Flank Pain, Adult, [id number] ec2 Forms: - Medication Reconciliation Form sp3 - Antibiotic Education sp3 - Prescription Opioid Use sp3 - Patient Portal Instructions sp3 - Leadership Thank You Letter sp3 Prescriptions: - Diclofenac Sodium 75 mg Oral Tablet Sustained Release - take 1 tablet ORAL route 2 times per day; 30 tablet; Refills: 0, Product sp3 Selection Permitted - Cyclobenzaprine 5 mg Oral Tablet - take 1 tablet ORAL route 3 times per day As needed; 15 tablet; Refills: 0, sp3 Product Selection Permitted Signatures: Dispatcher [employer] EDAime Ball RN RN jb4 Paulina Cameron RN RN ap3 Abelino Toribio DO DO ms3 Jacinta Fortune MD MD sp3 Beltran Deluca MD MD ec2 Corrections: (The following items were deleted from the chart) 16:13 16:13 CBC+H.LAB.BRZ ordered. EDMS EDMS 16:13 16:13 COMPREHENSIVE METABOLIC PANEL+C.LAB.BRZ ordered. EDMS EDMS 16:13 16:13 Urinalysis+U.LAB.BRZ ordered. EDMS EDMS 16:13 16:13 Abdomen Pelvis Wo Con+CT.RAD.BRZ ordered. EDMS EDMS 21:11 20:57 ED course: Patient signed out to me by Dr. Deluca and was previously seen by Dr. estela Toribio. 69-year-old male with history of kidney stone presented with flank pain. Full workup was negative including UA, labs and CT scan. Will reassess pain level and reassure patient and share results. Patient can follow-up with his PCP as needed.. sp3
[2024-05-28 21:51] VITALS: TEMP 98.4
[2024-05-28 21:54] VITALS: BP 141/85; O2SAT 95
== END 2024-05-28 21:38 | disposition home or self-care (01) ==
LOC: ER 15:55
DX: R10.9 Unspecified abdominal pain (principal); F17.220 Nicotine dependence, chewing tobacco, uncomplicated
CPT/HCPCS: 36415; 74176; 76377; 80053; 81003; 85025; 96374; 99284